=== PATIENT | female | born 1985 | race Hispanic/Latino ===

== ENCOUNTER → 2018-05-08 09:09 | Outpatient (CLI) | payer MEDICARE, MEDICAID, SELFPAY ==
[2018-05-08 10:39] LABS: Add Manual Diff / Slide Review NO; Basophils Percent Auto 0.3 % (0-2); Hematocrit 41.5 % (36-46); Hemoglobin 14.4 g/dL (12.0-16.0); Lymphocytes Percent Auto 37.9 % (25-40); Mean Corpuscular HGB Conc 34.7 % (30-36); Mean Corpuscular Hemoglobin 32.1 PG (26-34); Mean Corpuscular Volume 92.5 fL (80-100); Monocytes Percent Auto 5.2 % (3-14); Neutrophils Absolute Auto 2800 /uL (3000-5900); Neutrophils Percent Auto 54.6 % (50-75); Platelet Count 122 X10^3/uL (150-400); Red Blood Cell Count 4.49 X10^6/uL (4.0-5.2); Red Cell Distribution Width 12.6 % (11.6-14.8); White Blood Cell Count 5.1 X10^3/uL (4.5-11.0)
[2018-05-08 11:40] LABS: Alanine Aminotransferase 60 IU/L (9-52); Albumin 4.1 g/dL (3.5-5.0); Albumin Globulin Ratio 1.1 (1.0-2.8); Alkaline Phosphatase 149 U/L (38-126); Aspartate Aminotransferase 30 IU/L (14-36); BUN Creatinine Ratio 23.3 (6-22); Bilirubin Total 1.2 mg/dL (0.2-1.3); Blood Urea Nitrogen 7 mg/dL (7-17); Carbon Dioxide 25 mmol/L (22-32); Chloride 97 mmol/L (98-107); Estimated Glomerular Filt Rate > 60.0 mL/min (>60); Globulin 3.7 g/dL (1.7-4.1); Glucose 83 mg/dL (70-100); HEMOLYSIS < 15 (0-50); Potassium 3.8 mmol/L (3.4-5.1); Sodium 133 mmol/L (137-145); Total Protein 7.8 g/dL (6.3-8.2)
== END ==
PROVIDERS: PCP Family Medicine; Visit Provider Family Medicine
DX: D69.6 Thrombocytopenia, unspecified (principal); E23.2 Diabetes insipidus
CPT/HCPCS: 36415; 80053; 85025

== ENCOUNTER 2018-06-03 06:50 | Inpatient (IN) | payer MEDICARE, MEDICAID, SELFPAY ==
[2018-06-03] VITALS (7 sets, daily range): BP systolic 109–141; BP diastolic 59–97; PULSE 95–112; RESP 18–30; TEMP 36.2–37.1; O2SAT 98–100; BMI 22.6
[2018-06-03] MEDS: LACTATED RINGERS 1,000 ML 42 ML IV (07:10)
--- NOTE | 2018-06-03 08:08 | PM.PREOP ---
Pre-operative Note Interval Note Pre-op Check: Yes History & Physical Reviewed by Physician and Yes Exam Performed Changes: No H&P completed within 30 days and has changed as indicated here:: No significant changes. Did not take metoprolol this morning.
--- NOTE | 2018-06-03 08:26 | SUR.OPER ---
Supine on padded OR bed, head on pillow, arm padded and tucked at side, legs uncrossed, safety belt at thigh, tape over blanket over lower legs .
--- NOTE | 2018-06-03 08:46 | PM.PROC.1 ---
Procedures Date/Time Date of procedure: 06/03/18 Time of procedure: 08:46 General Procedure description: Tracheostomy revision. Complications: none
--- NOTE | 2018-06-03 08:48 | PM.OP.1 ---
Operative Date/Time/Diagnoses Date of procedure: 06/03/18 Time of procedure: 08:48 Pre-op diagnosis: Tracheostomy stenosis Post-op diagnosis: same Procedure & Clinicians Procedure: Tracheostomy revision Same procedure as scheduled: Yes Indications: Tracheostomy stenosis Surgeon: Ney Mccartney Optical Engineering Manager: Florencio Ellis Anesthesia Type: General Operative Notes Findings: The stenosis and granulation/scar tissue of the tracheostomy site. Small amount of granulation within the tracha itself. Closure Type: not applicable Specimen(s): none sent Estimated Blood Loss (mL): 2 Blood products transfused: none Complications: none Condition: stable Disposition: PACU Plan for aftercare: Discharge home
[2018-06-03] MEDS: LIDOCAINE 1% W/EPI INJ 4 ML INJ (09:05)
[2018-06-03] MEDS: TRIAMCINOLONE 50 MG/5 ML VIAL INJ (09:12)
== END 2018-06-03 10:16 | disposition home or self-care (01) | DRG 206 ==
PROVIDERS: Otolaryngology; Admitting Provider Otolaryngology; PCP Family Medicine; Visit Provider Otolaryngology
PROC: 0HB1XZZ Excision of Face Skin, External Approach (ICD-10-PCS; principal; 2018-06-03 07:45)
DX: J95.03 Malfunction of tracheostomy stoma (principal); E23.2 Diabetes insipidus; G80.9 Cerebral palsy, unspecified; R62.50 Unspecified lack of expected normal physiological development in childhood
CPT/HCPCS: J0330; J1100; J2704; J3301

== ENCOUNTER → 2018-11-20 09:28 | Outpatient (CLI) | payer MEDICARE, MEDICAID, SELFPAY ==
[2018-11-20 10:24] LABS: Hematocrit 43.7 % (36-46); Mean Corpuscular HGB Conc 34.4 % (30-36); Mean Corpuscular Hemoglobin 31.8 PG (26-34); Mean Corpuscular Volume 92.6 fL (80-100); Platelet Count 159 X10^3/uL (150-400); Red Blood Cell Count 4.72 X10^6/uL (4.0-5.2); Red Cell Distribution Width 12.5 % (11.6-14.8); White Blood Cell Count 6.3 X10^3/uL (4.5-11.0)
[2018-11-20 10:33] LABS: Neutrophils Absolute Manual 3717 /uL (3000-5900); Total Cells Counted 100
[2018-11-20 10:34] LABS: Morphology Comment Normal Morphology
[2018-11-20 10:48] LABS: Alanine Aminotransferase 66 IU/L (9-52); Albumin 4.2 g/dL (3.5-5.0); Albumin Globulin Ratio 1.1 (1.0-2.8); Alkaline Phosphatase 158 U/L (38-126); Aspartate Aminotransferase 36 IU/L (14-36); BUN Creatinine Ratio 33.3 (6-22); Bilirubin Total 1.5 mg/dL (0.2-1.3); Blood Urea Nitrogen 10 mg/dL (7-17); Calcium 9.4 mg/dL (8.4-10.2); Carbon Dioxide 27 mmol/L (22-32); Chloride 101 mmol/L (98-107); Estimated Glomerular Filt Rate > 60.0 mL/min (>60); Globulin 3.7 g/dL (1.7-4.1); Glucose 78 mg/dL (70-100); HEMOLYSIS 30 (0-50); Potassium 4.7 mmol/L (3.4-5.1); Sodium 137 mmol/L (137-145); Total Protein 7.9 g/dL (6.3-8.2)
== END ==
PROVIDERS: PCP Family Medicine; Visit Provider Family Medicine
DX: E23.2 Diabetes insipidus (principal); D69.6 Thrombocytopenia, unspecified
CPT/HCPCS: 36415; 80053; 85025

== ENCOUNTER 2019-02-01 10:57 | Emergency (ER) | payer MEDICARE, MEDICAID, SELFPAY ==
--- NOTE | 2019-02-01 11:12 | DI.RAD.S_ITS ---
PROCEDURE: XR ABDOMEN MIN 2V INDICATIONS: constipation: PT is NOT MOBILE TECHNIQUE: 2 views of the abdomen were acquired. COMPARISON: None. FINDINGS: Surgical changes and devices: None. Bowel: No pneumoperitoneum. There is diffuse gaseous prominence, although no definite transition point or pathologically dilated bowel. Soft tissues: No masses; visualized solid organ contours appear normal in size. No suspicious abdominal calcifications. Moderate to large amount of stool is seen within the colon Bones: Chronic skeletal deformity and extensive thoracic and lumbar spinal instrumentation. There is also surgical fixation of the proximal left femur. Severe bilateral hip joint degeneration and deformities IMPRESSION: Diffuse gaseous prominence of the visualized bowel loops. No definite transition point or pathologic dilatation identified. No specific evidence of bowel obstruction seen at this time although if the patient's symptoms do not improve, continued surveillance with abdominal series radiographs could be performed. Moderate to large amount of stool, suggesting constipation. Dictated by: Brant Retana M.D. on 02/01/2019 at 11:46 Approved by: Brant Retana M.D. on 02/01/2019 at 11:48
[2019-02-01 11:14] VITALS: BP 125/94; PULSE 95; RESP 19; TEMP 36.9; O2SAT 99
[2019-02-01] MEDS: MINERAL OIL 1 EACH ENEMA PR (12:10)
[2019-02-01 12:30] VITALS: BP 140/93; PULSE 89; RESP 20; O2SAT 96
[2019-02-01] MEDS: MAGNESIUM CITRATE 300 ML SOLUTION PO (13:15)
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
[2019-02-01 13:30] VITALS: BP 138/82; PULSE 81; O2SAT 96
[2019-02-01 13:49] VITALS: BP 138/74; PULSE 72; RESP 18; O2SAT 98
== END 2019-02-01 14:04 | disposition home or self-care (01) ==
PROVIDERS: Emergency Provider Nurse Practitioner Family; PCP Family Medicine
DX: K59.09 Other constipation (principal)
CPT/HCPCS: 74019; 99282; 99283

== ENCOUNTER 2019-03-20 17:04 | Emergency (ER) | payer MEDICARE, MEDICAID, SELFPAY ==
[2019-03-20 17:11] VITALS: BP 125/85; PULSE 92; RESP 25; TEMP 37.2; O2SAT 98
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
[2019-03-20 18:29] VITALS: BP 123/90; PULSE 98; RESP 21; O2SAT 93
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
== END 2019-03-20 20:01 | disposition short-term general hospital (02) ==
PROVIDERS: Emergency Provider Emergency Medicine; Family Provider Family Medicine; PCP Family Medicine
DX: Z03.89 Encounter for observation for other suspected diseases and conditions ruled out (principal); Z93.0 Tracheostomy status
CPT/HCPCS: 99282

== ENCOUNTER → 2019-06-26 10:49 | Outpatient (CLI) | payer MEDICARE, MEDICAID, SELFPAY | PROVIDERS: Family Provider Family Medicine; PCP Family Medicine; Visit Provider Family Medicine | DX: N89.8 Other specified noninflammatory disorders of vagina (principal) | CPT/HCPCS: 87210 ==

== ENCOUNTER 2019-07-27 18:21 | Emergency (ER) | payer MEDICARE, MEDICAID, SELFPAY ==
--- NOTE | 2019-07-27 18:26 | DI.RAD.S_ITS ---
PROCEDURE: XR CHEST 1V INDICATIONS: cough, decreased breath sounds TECHNIQUE: One view of the chest was acquired. COMPARISON: [facility], CHEST 1 VIEW, 02/20/2018, 22:17. [facility], , CHEST 1 VIEW, 11/03/2017, 16:29. FINDINGS: Surgical changes and devices: Spine stabilization rods are present , as before. Lungs and pleura: Lung volumes are low. Mild right perihilar atelectasis versus pneumonia. No pleural effusions or pneumothorax. Mediastinum: Mediastinal contours appear normal. Heart size is normal. Bones and chest wall: No suspicious bony lesions. Overlying soft tissues appear unremarkable. IMPRESSION: Low lung volumes with right perihilar atelectasis versus pneumonia. Dictated by: Rajat Schneider M.D. on 07/27/2019 at 19:51 Approved by: Rajat Schneider M.D. on 07/27/2019 at 19:51
--- NOTE | 2019-07-27 18:27 | ED.SOB ---
HPI - SOB/Dyspnea General Chief Complaint: Upper Respiratory Symptoms Stated Complaint: Bleeding stoma Time Seen by Provider: 07/27/19 18:22 Source: family and EMS Mode of arrival: EMS Limitations: no limitations History of Present Illness HPI Narrative: 34-year-old female nonsmoker with history of cerebral palsy with tracheostomy and G-tube was in her normal state of health until this afternoon when her father was bathing her. He was cleaning her stoma and noted a small amount of bleeding which was then cauterized with silver nitrate. During the process she coughed a fair amount and seemed to be at least briefly in some respiratory distress. EMS was activated and has given her bronchodilators. Patient is clearing up and seems to be doing much better. No reported fever, rash thought of abdominal pain chest pain or other. MD Complaint: cough Onset (ago): hour(s) Severity: moderate Consistency/Duration: improved Relieving factors: bronchodilators Exacerbating factors: nothing Associated symptoms: denies other symptoms Related Data Home Medications Medication Instructions Recorded Confirmed lactose-reduced food with fibr 1 dose FEEDING TUBE QID 05/29/18 10/01/18 [Jevity 1 Jovan] Nebulizer Mask: Adult 1 ea MISCELLANEOUS DIRECTED 06/03/18 10/01/18 [G-Tube ] 1 ea MISCELLANEOUS QMONTH 06/03/18 10/01/18 [INNER CANNULA] 1 ea MISCELLANEOUS DIRECTED 06/03/18 10/01/18 [L Adult Briefs] 1 pac MISCELLANEOUS SEE 06/03/18 10/01/18 INSTRUCTIONS [SHILEY TRACH TUBE ] 1 ea MISCELLANEOUS DIRECTED 06/03/18 10/01/18 [SUCTION CATHETER ] 1 ea MISCELLANEOUS DIRECTED 06/03/18 10/01/18 [SUCTION TUBING] 1 ea MISCELLANEOUS DIRECTED 06/03/18 10/01/18 [sterile water] 1 ea MISCELLANEOUS DIRECTED 06/03/18 10/01/18 [thermal vents] 1 u SEE INSTRUCTIONS 06/03/18 10/01/18 [trach ties] 1 ea MISCELLANEOUS DIRECTED 06/03/18 10/01/18 simethicone [Gas Relief] 20 mg PO QIDP PRN 06/03/18 10/01/18 Previous Rx's Medication Instructions Recorded [Jevity 1 jovan] 4 can QDAY #0 08/22/16 [Button Kit] 1 kit QMONTH #1 kit 11/16/16 simethicone [Gas-X Extra Strength] 125 mg PO QID #120 tab 05/07/17 guaifenesin [Mucinex] 600 mg PO Q12H PRN #1 ea 07/27/17 albuterol sulfate 3 ml INH Q4HP PRN #180 ea 11/03/17 baclofen 20 mg tablet 20 mg PO TID #90 tab 11/18/18 metoprolol tartrate 25 mg tablet 25 mg PO BID #60 tab 11/18/18 docusate sodium 50 mg/5 mL oral 50 mg PO DAILY #473 ml 11/20/18 liquid medroxyprogesterone 150 mg/mL 150 mg IM ONCE #1 12/19/18 intramuscular syringe ranitidine HCl 15 mg/mL oral syrup 150 mg PO QDAY #300 ml 04/21/19 desmopressin 0.1 mg tablet 0.1 mg PO BID #180 tab 05/07/19 Allergies Allergy/AdvReac Type Severity Reaction Status Date / Time No Known Drug Allergies Allergy Verified 07/27/19 18:36 Review of Systems Review of Systems ROS Unobtainable: All systems reviewed & are unremarkable except as noted in HPI and below Constitutional Constitutional: Denies chills, Denies fatigue, Denies fever(s), Denies frequent falls, Denies lethargy and Denies weakness Eyes Eyes: Denies change in vision, Denies eye discharge, Denies irritation and Denies loss of vision ENT Ears, Nose, Mouth, and Throat: Denies change in voice, Denies dizziness, Denies neck pain, Denies sore throat and Denies throat swelling Cardiovascular Cardiovascular: Denies chest pain, Denies irregular heart rhythm, Denies lightheadedness, Denies palpitations and Denies orthopnea Respiratory Respiratory: Reports cough and Denies wheezing Gastrointestinal Gastrointestinal: Denies abdominal pain, Denies change in bowel habits, Denies diarrhea, Denies nausea and Denies vomiting Genitourinary Genitourinary: Denies hematuria, Denies flank pain, Denies urinary incontinence and Denies urinary urgency Musculoskeletal Musculoskeletal: Denies back pain, Denies muscle weakness, Denies neck pain, Denies numbness and Denies tingling Integumentary/Breasts Skin/Breast: Denies pruritus, Denies erythema, Denies rash and Denies wounds Neurologic Neurologic: Denies behavioral changes, Denies confusion, Denies dizziness, Denies frequent falls, Denies loss of vision, Denies numbness, Denies tingling and Denies weakness Psychiatric Psychiatric: Denies anxiety, Denies behavioral changes, Denies confusion, Denies depression, Denies homicidal ideation and Denies suicidal ideation Endocrine Endocrine: Denies fatigue, Denies flushing and Denies palpitations Hematologic/Lymphatic Hematologic/Lymphatic: Denies easy bruising Allergic/Immunologic Allergic/Immunologic: Denies urticaria, Denies throat swelling and Denies wheezing [facility] Social History household members: family Smoking Status: Never smoker Exam Narrative Exam Narrative: GENERAL: [34] year old patient appears stated age. Clearly well cared for, Well-nourished, no respiratory distress noted, at her baseline HEAD: Atraumatic. Normocephalic. EYES: Pupils equal round and reactive. Extraocular motions intact. No scleral icterus. No injection or drainage. ENT: Nose without bleeding, purulent drainage. Throat without erythema, tonsillar hypertrophy or exudate. Airway patent. NECK: Trachea midline. Non tender CARDIOVASCULAR: Regular rate and rhythm without murmurs, gallops, or rubs. RESPIRATORY: Clear to auscultation. Breath sounds equal bilaterally. No wheezes, rales, or rhonchi. Small amount of dried blood at rigth edge of trach stoma. No active bleeding. GASTROINTESTINAL: Abdomen soft, non-tender, nondistended. EXTREMITIES: No edema or joint tenderness. BACK: Nontender without deformity or crepitance. No flank tenderness. SKIN: No rash or erythema of visible areas Initial Vital Signs Initial Vital Signs: Vital Signs Temperature 97.8 F 07/27/19 18:32 Pulse Rate 103 H 07/27/19 18:32 Blood Pressure 147/94 H 07/27/19 18:32 Pulse Oximetry 96 07/27/19 18:32 Course Course Course Narrative: suctioning by RT. All clear, no blood Orders Ordered: ED Orders 07/27/19 18:26 XR chest 1V Stat Vital Signs Vital signs: Vital Signs - 8 hr 07/27/19 18:32 07/27/19 19:45 07/27/19 19:47 Temperature 97.8 F Pulse Rate 103 H 113 H Respiratory Rate 22 Blood Pressure 147/94 H Blood Pressure [Right Arm] 113/91 H Pulse Oximetry 96 97 07/27/19 20:37 Temperature Pulse Rate 107 H Respiratory Rate 22 Blood Pressure 135/97 H Blood Pressure [Right Arm] Pulse Oximetry 97 MDM - SOB/Dyspnea MDM Narrative Medical decision making narrative: 34-year-old female well known to staff at her baseline and in no obvious distress. Suctioning notes a small amount of clear fluid with, this is done by respiratory therapy whom knows the patient well. Chest x-ray appears unchanged over multiple priors. It is interpreted as atelectasis versus pneumonia in the right lower lobe but given lack of infectious findings and the timing of the event. Patient was in her normal state of health until she had a brief choking episode and quickly returned to that state of health after suctioning. Return precautions given and questions answered to the apparent satisfaction of her father. Discharge Plan Departure Patient Disposition: Home Clinical Impression: Feared complaint without diagnosis Cerebral palsy Qualifiers: Cerebral palsy type: unspecified type Qualified Code(s): G80.9 - Cerebral palsy, unspecified Discharge Date/Time: 07/27/19 20:38 Instructions: DI on Tracheotomy-Adult Activity Restrictions/Additional Instructions: *You have been diagnosed with [very reassuring exam, no blood on suction and chest x-ray is at baseline.] *What to do: * continue to take medications as directed *Follow up with your primary care provider in 2-3 days, call for an appointment. Let them know you were seen in the Emergency Department and that we ask that you be seen in follow up *Return to ER if you should have any new, worsening or concerning symptoms Prescriptions: No Action [Jevity 1 jovan] 4 can QDAY Qty: 0 RF: 0 [Button Kit] 1 kit QMONTH Qty: 1 RF: 12 simethicone [Gas-X Extra Strength] 125 MG tablet,chewable 125 mg PO QID Qty: 120 RF: 2 guaifenesin [Mucinex] 600 MG tablet extended release 12hr 600 mg PO Q12H PRNQty: 1 RF: 0 albuterol sulfate 2.5 MG/3 ML solution for nebulization 3 ml INH Q4HP PRNQty: 180 RF: 0 baclofen 20 mg tablet 20 mg PO TID Qty: 90 RF: 11 metoprolol tartrate 25 mg tablet 25 mg PO BID Qty: 60 RF: 11 medroxyprogesterone 150 mg/mL syringe 150 mg IM ONCE Qty: 1 RF: 3 ranitidine HCl 15 mg/mL syrup 150 mg PO QDAY Qty: 300 RF: 3 desmopressin [DDAVP] 0.1 mg tablet 0.1 mg PO BID Qty: 180 RF: 3 docusate sodium 50 mg/5 mL liquid 50 mg PO DAILY Qty: 473 RF: 1 lactose-reduced food with fibr [Jevity 1 Jovan] 0.04 gram-1.06 kcal/mL Liquid 1 dose Feeding Tube QID RF: 0 simethicone [Gas Relief] 40 MG/0.6 ML drops,suspension 20 mg PO QIDP PRN (Reason: Acid Reflux) RF: 0 Nebulizer Mask: Adult 1 ea miscellaneous DIRECTED RF: 0 [G-Tube ] 1 ea miscellaneous QMONTH RF: 0 [INNER CANNULA] 1 ea miscellaneous DIRECTED RF: 0 [L Adult Briefs] 1 pac miscellaneous SEE INSTRUCTIONS RF: 0 [SHILEY TRACH TUBE ] 1 ea miscellaneous DIRECTED RF: 0 [SUCTION CATHETER ] 1 ea miscellaneous DIRECTED RF: 0 [SUCTION TUBING] 1 ea miscellaneous DIRECTED RF: 0 [sterile water] 1 ea miscellaneous DIRECTED RF: 0 [thermal vents] 1 u SEE INSTRUCTIONS RF: 0 [trach ties] 1 ea miscellaneous DIRECTED RF: 0 Referrals: Magi Brewer DO [Primary Care Provider] -
[2019-07-27 18:32] VITALS: BP 147/94; PULSE 103; TEMP 36.6; O2SAT 96; BMI 23.6
[2019-07-27 19:45] VITALS: BP 113/91; PULSE 113; O2SAT 97
[2019-07-27 19:47] VITALS: RESP 22
[2019-07-27 20:37] VITALS: BP 135/97; PULSE 107; RESP 22; O2SAT 97
== END 2019-07-27 20:38 | disposition home or self-care (01) ==
PROVIDERS: Emergency Provider Emergency Medicine; Family Provider Family Medicine; PCP Family Medicine
DX: K94.01 Colostomy hemorrhage (principal)
CPT/HCPCS: 71045; 99282; 99283

== ENCOUNTER 2019-10-17 13:58 | Emergency (ER) | payer MEDICARE, MEDICAID, SELFPAY ==
[2019-10-17 13:59] VITALS: BP 144/106; PULSE 131; RESP 26; TEMP 36.7; O2SAT 98
--- NOTE | 2019-10-17 14:29 | ED.RECABL ---
HPI - Recheck/Abnormal Lab/Rx General Chief Complaint: Recheck/Abnormal Lab/Rx Stated Complaint: G tube fell out Time Seen by Provider: 10/17/19 14:28 Source: family (father) and EMS Mode of arrival: EMS Limitations: altered mental status History of Present Illness HPI narrative: This is a 34-year-old female who comes to the emergency department and her PEG tube has fallen out. Father states he noticed last night that it wasn't working well he removed it, tried soaking in warm water which was not helpful. He noted it was blocked. He then tried cleaning it with syringe and flushing it placed it but then it fell back out and he realized that the balloon had either popped or broken. He states that he did attempt to secure it he did put a Quintana catheter in last night and had stomach contacts out almost immediately but did not know if this was appropriate. Patient's father states she hasn't had fevers. She hasn't had vomiting. She has a normal bowel movement every 2-3 days. He does not feel that her abdomen is distended or changed. He states that otherwise she has been acting normally. She states she has not had her tube feeds since yesterday evening at 7:00 p.m. he states that she has had good urine output 9-11 times daily he is changing her diaper. Related Data Home Medications Medication Instructions Recorded Confirmed lactose-reduced food with fibr 1 dose FEEDING TUBE QID 05/29/18 10/01/18 [Jevity 1 Violeta] Nebulizer Mask: Adult 1 ea MISCELLANEOUS DIRECTED 06/03/18 10/01/18 [G-Tube ] 1 ea MISCELLANEOUS QMONTH 06/03/18 10/01/18 [INNER CANNULA] 1 ea MISCELLANEOUS DIRECTED 06/03/18 10/01/18 [L Adult Briefs] 1 pac MISCELLANEOUS SEE 06/03/18 10/01/18 INSTRUCTIONS [SHILEY TRACH TUBE ] 1 ea MISCELLANEOUS DIRECTED 06/03/18 10/01/18 [SUCTION CATHETER ] 1 ea MISCELLANEOUS DIRECTED 06/03/18 10/01/18 [SUCTION TUBING] 1 ea MISCELLANEOUS DIRECTED 06/03/18 10/01/18 [sterile water] 1 ea MISCELLANEOUS DIRECTED 06/03/18 10/01/18 [thermal vents] 1 u SEE INSTRUCTIONS 06/03/18 10/01/18 [trach ties] 1 ea MISCELLANEOUS DIRECTED 06/03/18 10/01/18 simethicone [Gas Relief] 20 mg PO QIDP PRN 06/03/18 10/01/18 ranitidine HCl 150 mg PO DAILY 10/17/19 10/17/19 Previous Rx's Medication Instructions Recorded [Jevity 1 violeta] 4 can QDAY #0 08/22/16 [Button Kit] 1 kit QMONTH #1 kit 11/16/16 simethicone [Gas-X Extra Strength] 125 mg PO QID #120 tab 05/07/17 guaifenesin [Mucinex] 600 mg PO Q12H PRN #1 ea 07/27/17 albuterol sulfate 3 ml INH Q4HP PRN #180 ea 11/03/17 baclofen 20 mg tablet 20 mg PO TID #90 tab 11/18/18 metoprolol tartrate 25 mg tablet 25 mg PO BID #60 tab 11/18/18 docusate sodium 50 mg/5 mL oral 50 mg PO DAILY #473 ml 11/20/18 liquid desmopressin 0.1 mg tablet 0.1 mg PO BID #180 tab 05/07/19 medroxyprogesterone 150 mg/mL 150 mg IM ONCE #1 ml 08/25/19 intramuscular syringe famotidine 40 mg/5 mL (8 mg/mL) 40 mg PO DAILY #150 ml 09/09/19 oral suspension carbamide peroxide 6.5 % ear drops 4 drop OTIC (EAR) BID #15 ml 09/24/19 G-tube kit 16F 3.0cm Marquez button #1 ea 10/02/19 Allergies Allergy/AdvReac Type Severity Reaction Status Date / Time No Known Drug Allergies Allergy Verified 07/27/19 18:36 Review of Systems Review of Systems ROS Unobtainable: Unobtainable due to mental status/LOC Patient History Medical History Cerebral palsy (Chronic) Developmental delay, mild (Chronic) Diabetes insipidus (Chronic ~1982) Granulation tissue of site of tracheostomy (Acute) Pneumonia (Chronic) Scoliosis (Chronic ~1995) Surgical History Anesthesia (Resolved) Arthritis of right hip (Resolved ~1992) G tube feedings (Resolved ~1996) History of release of tendon (Resolved) History of tracheostomy (Resolved ~1996) Surgical procedure planned (Resolved ~1992) Social History household members: family Smoking Status: Never smoker Smoking Status: Never smoker alcohol intake frequency: holidays/special occasions only Substance Use Type: does not use Exam Narrative Exam Narrative: GENERAL: Alert female, patient looks around the room but is nonverbal. HEENT: Head normocephalic, atraumatic, EOMI, pupils reactive, face symmetric, moist mucous membranes NECK: Supple, full range of motion CARDIOVASCULAR: Regular rate and rhythm without murmurs, rubs or gallops. RESPIRATORY: Breath sounds equal bilaterally, no wheezes rales or rhonchi. ABDOMEN: Soft, nontender. Moderately distended. PEG tube opening appears clean dry and intact without any erythema, no drainage. Normoactive bowel sounds all 4 quadrants. No guarding or rebound, rigidity, no mass : No CVA tenderness EXTREMITIES: Normal range of motion, no clubbing or edema. Neurovascularly intact NEUROLOGICAL: Cranial nerves II through XII grossly intact. Moving all extremities SKIN: Warm, dry, no petechiae, no rashes or lesions. Initial Vital Signs Initial Vital Signs: Vital Signs Temperature 98.0 F 10/17/19 13:59 Pulse Rate 131 H 10/17/19 13:59 Respiratory Rate 26 H 10/17/19 13:59 Blood Pressure 144/106 H 10/17/19 13:59 Pulse Oximetry 98 10/17/19 13:59 Course Orders Ordered: ED Orders 10/17/19 14:55 XR abdomen 1V Stat Vital Signs Vital signs: Vital Signs - 8 hr 10/17/19 13:59 10/17/19 14:30 10/17/19 15:00 Temperature 98.0 F Pulse Rate 131 H 130 H 133 H Respiratory Rate 26 H 20 20 Blood Pressure 144/106 H Blood Pressure [Right Arm] 123/83 132/90 Pulse Oximetry 98 94 92 10/17/19 15:41 10/17/19 16:36 Temperature Pulse Rate 129 H 128 H Respiratory Rate 24 24 Blood Pressure Blood Pressure [Right Arm] 111/88 142/100 H Pulse Oximetry 94 95 [facility] - Recheck/Abnormal Lab/Rx Imaging Data Abdominal x-ray: Radiologist's impression: [facility] [address] [place] [id number] XRay Report Signed Patient: Ana Ray [facility]#: [id number] : 1985Acct:[id number] Age/Sex: 34 / FDate of Service: 10/17/19 Loc: ED Accession Number: [id number] Procedure: XR abdomen 1V Ordering Provider: Bailey Gray D.O. PROCEDURE: XR ABDOMEN 1V INDICATIONS: gastrografin via tube TECHNIQUE: One view of the abdomen acquired. COMPARISON: [facility], CR, XR ABDOMEN MIN 2V, 02/01/2019, 11:19. FINDINGS: Surgical changes and devices: PEG tube is noted. After instillation of Gastrografin contrast there is intraluminal opacification. No definite extraluminal opacification to suggest leak. Bowel: Prominent gaseous dilatation of multiple bowel loops. No specific transition point in the appearances relatively similar to 02/01/19 Soft tissues: No suspicious abdominal calcifications. Visualized solid organ contours appear normal in size. Bones: No suspicious bony lesions. Numerous spinal fixation hardware. Chronic skeletal deformity IMPRESSION: No definite extraluminal contrast opacification to suggest leak. Grossly unremarkable appearance of the stomach and normal PEG tube position Dictated by: Brant Retana M.D. on 10/17/2019 at 15:19 Approved by: Brant Retana M.D. on 10/17/2019 at 15:22 [facility] Narrative Medical decision making narrative: 16Fr Quintana catheter was placed without issue. Catheter was checked, balloon was inflated, move was used and the catheter easily slid into the hole. Balloon was inflated pulled back and appears to be in place with some gastric type contents immediately out of the tube. Patient's father did bring in the original PEG tube which does appear to be a 16 Faroese. He has another 1 coming in the mail but will arrive until tomorrow. He states he is typically the 1 that changes them out. Discussed with radiology, fluoroscopy is down currently but they can a quick injection of dye with x-ray to evaluate for patency. Xray shows no suggestion of leak and unremarkable appearance of stomach and normal PEG tube placement. Nursing is attempting to find adaptor for patient so she can continue PEG tube feeds at home until her home PEG tube arrives. Unable to find adaptor but discussed can bolus feeds at home until new PEG tube arrives in the am. Discharge Plan Departure Patient Disposition: Home Clinical Impression: PEG tube malfunction Discharge Date/Time: 10/17/19 17:24 Activity Restrictions/Additional Instructions: You may return to ER tomorrow for replacement of the PEG tube unless you feel comfortable replacing it yourself. Continue current feeds and medications as prescribed. Imaging today after catheter placement shows no signs of leak at this time and good placement. Return to the emergency department for fevers greater 100.4 F, if the catheter appears to be male functioning, if you are unable to get medications or feeds or fluids through it, new abdominal pain, increasing distension, vomiting, if patient is not having any stool output or any other new or concerning signs. Prescriptions: No Action [Jevity 1 violeta] 4 can QDAY Qty: 0 RF: 0 [Button Kit] 1 kit QMONTH Qty: 1 RF: 12 simethicone [Gas-X Extra Strength] 125 MG tablet,chewable 125 mg PO QID Qty: 120 RF: 2 guaifenesin [Mucinex] 600 MG tablet extended release 12hr 600 mg PO Q12H PRNQty: 1 RF: 0 albuterol sulfate 2.5 MG/3 ML solution for nebulization 3 ml INH Q4HP PRNQty: 180 RF: 0 baclofen 20 mg tablet 20 mg PO TID Qty: 90 RF: 11 metoprolol tartrate 25 mg tablet 25 mg PO BID Qty: 60 RF: 11 desmopressin [DDAVP] 0.1 mg tablet 0.1 mg PO BID Qty: 180 RF: 3 famotidine 40 mg/5 mL (8 mg/mL) suspension 40 mg PO DAILY Qty: 150 RF: 11 docusate sodium 50 mg/5 mL liquid 50 mg PO DAILY Qty: 473 RF: 1 medroxyprogesterone 150 mg/mL syringe 150 mg IM ONCE Qty: 1 RF: 3 carbamide peroxide [Debrox] 6.5 % drops 4 drop otic (ear) BID Qty: 15 RF: 0 (DME) G-tube kit 16F 3.0cm Marquez button Qty: 1 RF: 11 lactose-reduced food with fibr [Jevity 1 Violeta] 0.04 gram-1.06 kcal/mL Liquid 1 dose Feeding Tube QID RF: 0 simethicone [Gas Relief] 40 MG/0.6 ML drops,suspension 20 mg PO QIDP PRN (Reason: Acid Reflux) RF: 0 Nebulizer Mask: Adult 1 ea miscellaneous DIRECTED RF: 0 [G-Tube ] 1 ea miscellaneous QMONTH RF: 0 [INNER CANNULA] 1 ea miscellaneous DIRECTED RF: 0 [L Adult Briefs] 1 pac miscellaneous SEE INSTRUCTIONS RF: 0 [SHILEY TRACH TUBE ] 1 ea miscellaneous DIRECTED RF: 0 [SUCTION CATHETER ] 1 ea miscellaneous DIRECTED RF: 0 [SUCTION TUBING] 1 ea miscellaneous DIRECTED RF: 0 [sterile water] 1 ea miscellaneous DIRECTED RF: 0 [thermal vents] 1 u SEE INSTRUCTIONS RF: 0 [trach ties] 1 ea miscellaneous DIRECTED RF: 0 ranitidine HCl 15 mg/mL syrup 150 mg PO DAILY RF: 0 Referrals: Magi Brewer DO [Primary Care Provider] -
[2019-10-17 14:30] VITALS: BP 123/83; PULSE 130; RESP 20; O2SAT 94
--- NOTE | 2019-10-17 14:55 | DI.RAD.S_ITS ---
PROCEDURE: XR ABDOMEN 1V INDICATIONS: gastrografin via tube TECHNIQUE: One view of the abdomen acquired. COMPARISON: [facility], CR, XR ABDOMEN MIN 2V, 02/01/2019, 11:19. FINDINGS: Surgical changes and devices: PEG tube is noted. After instillation of Gastrografin contrast there is intraluminal opacification. No definite extraluminal opacification to suggest leak. Bowel: Prominent gaseous dilatation of multiple bowel loops. No specific transition point in the appearances relatively similar to 02/01/19 Soft tissues: No suspicious abdominal calcifications. Visualized solid organ contours appear normal in size. Bones: No suspicious bony lesions. Numerous spinal fixation hardware. Chronic skeletal deformity IMPRESSION: No definite extraluminal contrast opacification to suggest leak. Grossly unremarkable appearance of the stomach and normal PEG tube position Dictated by: Brant Retana M.D. on 10/17/2019 at 15:19 Approved by: Brant Retana M.D. on 10/17/2019 at 15:22
[2019-10-17 15:00] VITALS: BP 132/90; PULSE 133; RESP 20; O2SAT 92
--- NOTE | 2019-10-17 15:08 | PC.NURSE ---
#16 gilliam secured w/ device. Flushes well. Father voices concern re: taking child home w/ this in place rather than his normal g tube. Respiratory in to suction pt. Father asked that he do it as he does it at home.
--- NOTE | 2019-10-17 15:17 | PC.NURSE ---
Flushed contrast, tube patent. Pt in no apparent discomfort.
[2019-10-17 15:41] VITALS: BP 111/88; PULSE 129; RESP 24; O2SAT 94
[2019-10-17 16:36] VITALS: BP 142/100; PULSE 128; RESP 24; O2SAT 95
--- NOTE | 2019-10-17 16:37 | PC.NURSE ---
tolerated bolus feeds as per normal. Father states he feels comfortable w/ doing feeds at home. Has appropriate supplies. Refused offer to attempt admission if he was not comfortable. States he would feel better at home. Tolerated 140 cc regular formula bolus feed.
== END 2019-10-17 17:24 | disposition home or self-care (01) ==
PROVIDERS: Emergency Provider Emergency Medicine; Family Provider Family Medicine; PCP Family Medicine
DX: K94.23 Gastrostomy malfunction (principal)
CPT/HCPCS: 74018; 99282; 99283

== ENCOUNTER → 2020-02-19 17:00 | Outpatient (ROUT) | payer MEDICARE, MEDICAID, SELFPAY ==
[2020-02-19 17:22] LABS: Add Manual Diff / Slide Review NO; Basophils Absolute Auto 0 /uL (0-100); Basophils Percent Auto 0.5 % (0-2); Eosinophils Absolute Auto 100 /uL (0-450); Hematocrit 42.2 % (36-46); Hemoglobin 14.6 g/dL (12.0-16.0); Lymphocytes Absolute Auto 2300 /uL (1100-4500); Lymphocytes Percent Auto 32.3 % (25-40); Mean Corpuscular HGB Conc 34.6 % (30-36); Mean Corpuscular Hemoglobin 32.3 PG (26-34); Mean Corpuscular Volume 93.3 fL (80-100); Monocytes Absolute Auto 500 /uL (0-900); Neutrophils Absolute Auto 4200 /uL (1500-7000); Neutrophils Percent Auto 58.2 % (50-75); Platelet Count 162 X10^3/uL (150-400); Red Blood Cell Count 4.52 X10^6/uL (4.0-5.2); Red Cell Distribution Width 12.3 % (11.6-14.8); White Blood Cell Count 7.2 X10^3/uL (4.5-11.0)
[2020-02-19 17:28] LABS: Alanine Aminotransferase 41 IU/L (<35); Albumin 4.2 g/dL (3.5-5.0); Albumin Globulin Ratio 1.1 (1.0-2.8); Alkaline Phosphatase 187 U/L (38-126); Aspartate Aminotransferase 31 IU/L (14-36); BUN Creatinine Ratio 34.4 (6-22); Bilirubin Total 1.3 mg/dL (0.2-1.3); Blood Urea Nitrogen 11 mg/dL (7-17); Calcium 9.5 mg/dL (8.4-10.2); Carbon Dioxide 26 mmol/L (22-32); Chloride 102 mmol/L (98-107); Cholesterol 74 mg/dL (140-199); Estimated Glomerular Filt Rate > 60.0 mL/min (>60); Glucose 75 mg/dL (70-100); HDL Cholesterol 20 mg/dL (40-60); HEMOLYSIS < 15 (0-50); LDL Cholesterol Calculated 44 mg/dL (<100); Potassium 4.2 mmol/L (3.4-5.1); Sodium 139 mmol/L (137-145); Total Protein 8.2 g/dL (6.3-8.2); Triglycerides 52 mg/dL (35-150)
[2020-02-19 18:00] LABS: Free T3, Triiodothyronine Free 3.44 pg/mL (2.77-5.27); Free T4, Direct Thyroxine 1.22 ng/dL (0.78-2.19)
[2020-02-19 18:14] LABS: Thyroid Stimulating Hormone 3.14 uIU/mL (0.47-4.68)
== END ==
PROVIDERS: Family Provider Family Medicine; PCP Family Medicine; Visit Provider Nurse Practitioner
DX: Z00.00 Encounter for general adult medical examination without abnormal findings (principal); E23.2 Diabetes insipidus; R03.0 Elevated blood-pressure reading, without diagnosis of hypertension; R79.89 Other specified abnormal findings of blood chemistry; Z93.1 Gastrostomy status
CPT/HCPCS: 80053; 80061; 84439; 84443; 84481; 85025

== ENCOUNTER → 2020-09-29 12:45 | Outpatient (CLI) | payer MEDICARE, MEDICAID, SELFPAY ==
[2020-09-29 13:37] LABS: COVID19 -Nasal RAPID Negative (Negative)
== END ==
PROVIDERS: Family Provider Family Medicine; PCP Nurse Practitioner; Visit Provider Nurse Practitioner
DX: R05 Cough (principal); R50.9 Fever, unspecified
CPT/HCPCS: 87635

== ENCOUNTER → 2020-09-29 13:14 | Outpatient (CLI) | payer MEDICARE, MEDICAID, SELFPAY ==
--- NOTE | 2020-09-29 13:17 | DI.RAD.S_ITS ---
PROCEDURE: XR CHEST 2V INDICATIONS: Cough, increased secretions TECHNIQUE: 2 views of the chest were acquired. COMPARISON: [facility], CR, XR ABDOMEN 1V, 10/17/2019, 15:03. [facility], CR, XR ABDOMEN MIN 2V, 02/01/2019, 11:19. [facility], CR, CHEST 1 VIEW, 11/03/2017, 16:29. [facility], CR, CHEST 1 VIEW, 09/27/2016, 23:29. [facility], CR, XR CHEST 1V, 07/27/2019, 19:31. [facility], CR, CHEST 1 VIEW, 02/20/2018, 22:17. FINDINGS: Surgical changes and devices: Extensive prior spine fusion devices crossing from the thoracic into the lumbosacral region of the spine are again noted. Gas within bowel loops is present, the inspiratory volume is prominently reduced. There is a region of dense opacifications at the medial right upper lobe, possibly pneumonia or a mass. The area involved measures an estimated 8 cm transverse and 7.6 cm craniocaudad.. Lungs and pleura: Lungs are clear. No pleural effusions or pneumothorax. Mediastinum: Mediastinal contours are normal. Heart size is normal. Tracheostomy tube positioning is difficult to accurately assess due to overlap of spine fixation devices and patient rotation. Bones and chest wall: No suspicious bony abnormalities. Soft tissues appear unremarkable. IMPRESSION: Possible mass or dense pneumonia right upper lobe. Extensive prior spine fusion surgery. Elevation of the diaphragms, bilaterally, but greater on the right than the left. Contrast-enhanced CT scanning may be warranted. Dictated by: Malik Hedrick M.D. on 09/29/2020 at 14:18 Approved by: Malik Hedrick M.D. on 09/29/2020 at 14:21
== END ==
PROVIDERS: Family Provider Family Medicine; PCP Nurse Practitioner; Referring Provider Nurse Practitioner; Visit Provider Nurse Practitioner
DX: R05 Cough (principal); R50.9 Fever, unspecified; Z98.1 Arthrodesis status
CPT/HCPCS: 71046; 87635

== ENCOUNTER → 2020-11-15 09:12 | Outpatient (CLI) | payer MEDICARE, MEDICAID, SELFPAY ==
--- NOTE | 2020-11-15 09:13 | DI.RAD.S_ITS ---
PROCEDURE: XR CHEST 2V INDICATIONS: f/u pneumonia TECHNIQUE: 2 views of the chest were acquired. COMPARISON: [facility], , CHEST 1 VIEW, 11/03/2017, 16:29. [facility], CR, CHEST 1 VIEW, 02/20/2018, 22:17. [facility], CR, XR CHEST 2V, 09/29/2020, 13:28. [facility], , XR CHEST 1V, 07/27/2019, 19:31. FINDINGS: Surgical changes and devices: Thoracolumbar Chau rods are noted, unchanged compared to prior x-ray. Lungs and pleura: There is severe right hemidiaphragm elevation with adjacent atelectasis. Interposed colon between the liver and the right hemidiaphragm is unchanged. No focal consolidation, mass, pneumothorax, or pleural effusion. Density in the right upper lobe consistent with mass or pneumonia is decreased in conspicuity compared to the prior study on September 29, 2018. Similar findings were seen on more remote x-rays in this could represent compressed mediastinal structures. Given the persistence of this finding, recommend CT of the chest for further evaluation. Mediastinum: Mediastinal contours are normal. Heart size is normal. Bones and chest wall: No suspicious bony abnormalities. Soft tissues appear unremarkable. IMPRESSION: 1. Persistent density in the right medial apex. Recommend CT of the chest for further evaluation. 2. Stable elevation of the right hemidiaphragm. Dictated by: Alexis Jordan M.D. on 11/15/2020 at 9:49 Approved by: Alexis Jordan M.D. on 11/15/2020 at 9:57
== END ==
PROVIDERS: Family Provider Family Medicine; PCP Nurse Practitioner; Referring Provider Nurse Practitioner; Visit Provider Nurse Practitioner
DX: J69.0 Pneumonitis due to inhalation of food and vomit (principal)
CPT/HCPCS: 71046

== ENCOUNTER → 2020-11-22 11:49 | Outpatient (CLI) | payer MEDICARE, MEDICAID, SELFPAY ==
--- NOTE | 2020-11-22 11:52 | DI.CT.S_ITS ---
PROCEDURE: CT CHEST W CON INDICATIONS: density right medial apex TECHNIQUE: After the administration of intravenous contrast, 5 mm thick sections acquired from the pulmonary apices to the posterior costophrenic angles. 1 mm axial lung, 5 mm thick coronal and sagittal reformats and 7 mm axial MIP were acquired. For radiation dose reduction, the following was used: automated exposure control, adjustment of mA and/or kV according to patient size. COMPARISON: [facility], CR, XR CHEST 2V, 11/15/2020, 9:15. FINDINGS: Image quality: Excellent. Lungs and pleura: There is near complete collapse involving medial aspect of right upper lobe which accounts for radiograph finding. Decreased right lung volume and mediastinal shift to the right is seen. Linear scarring/atelectasis in anterior medial aspect of right middle lobe . Hazy ground-glass opacities are seen scattered in bilateral aerated lung coombs. No pleural effusions or pneumothorax. Central and left peripheral airways are patent. There is significant narrowing of right upper lobe bronchus at its origin. No definite endotracheal or endobronchial lesion is noted. Right middle and lower lobe airway is patent. Mediastinum: Heart size is normal. No pericardial effusion. Prominent soft tissue density in right upper mediastinum and right hilar region are seen concerning for lymphadenopathy. Thoracic aorta and central pulmonary arteries are normal in size. Esophagus is normal in caliber. No hiatal hernia. Bones and chest wall: No suspicious bony lesions. No vertebral body compression fractures. Fixation hardware in thoracic spine is seen. Marked dextroscoliosis of thoracic spine is noted. No axillary or supraclavicular adenopathy by size criteria. Thyroid gland is within normal limits. Abdomen: Visualized upper abdominal solid organs appear normal. Upper abdominal bowel loops are normal in caliber. IMPRESSION: 1. Near complete collapse of right upper lobe with decreased right lung volume and elevation of right hemidiaphragm. There is suggestion of stenosis involving right upper lobe bronchus proximally suggestive of postobstructive atelectasis of right upper lobe. No definite endobronchial mass is seen. Clinical and possible endoscopic evaluation is recommended. 2. Suggestion of mild pulmonary edema with ground-glass opacities scattered in bilateral aerated lung coombs. No pleural effusion or pneumothorax. 3. Mild soft tissue prominence in right upper mediastinum and right hilar region which may represent mediastinal and right hilar lymphadenopathy. Dictated by: Jermain Hudson M.D. on 11/22/2020 at 14:04 Approved by: Jermain Hudson M.D. on 11/22/2020 at 14:31
== END ==
PROVIDERS: Family Provider Family Medicine; PCP Nurse Practitioner; Referring Provider Nurse Practitioner; Visit Provider Nurse Practitioner
DX: J98.4 Other disorders of lung (principal)
CPT/HCPCS: 71260

== ENCOUNTER 2021-02-10 15:43 | Observation (INO) | payer MEDICARE, MEDICAID, SELFPAY ==
[2021-02-10] VITALS (7 sets, daily range): BP systolic 128–144; BP diastolic 74–89; PULSE 100–112; RESP 14–24; TEMP 37.3; O2SAT 96–100; BMI 23.5
--- NOTE | 2021-02-10 15:47 | DI.RAD.S_ITS ---
PROCEDURE: XR ACUTE ABDOMEN SERIES INDICATIONS: abdomen distention TECHNIQUE: One view chest and two views of the abdomen were acquired. COMPARISON: None. FINDINGS: Surgical changes and devices: Extensive spine fusion procedure, crossing from the low cervical through the thoracic through the lumbosacral spine and into the pelvis bilaterally.. Chest: Lungs are clear. Heart size is normal. No pleural effusions. No pneumoperitoneum. Abdomen: Bowel gas pattern is nonspecific and no free air is seen. There is greater bowel gas on the right than the left within the colon.. No suspicious calcifications. Visualized solid organ contours appear normal. Bones: No suspicious bony lesions. IMPRESSION: Bowel gas pattern is nonspecific, and no definite free air is seen on this semi upright view. Extensive spine surgery in the past, reduced inspiratory volume at the lungs bilaterally. Tracheostomy in place partially visualized. Dictated by: Malik Hedrick M.D. on 02/10/2021 at 16:40 Approved by: Malik Hedrick M.D. on 02/10/2021 at 16:41
--- NOTE | 2021-02-10 16:14 | ED.ABDPAIN ---
HPI - Abdominal Pain <Tana Erwin, DO - Last Filed: 02/11/21 07:13> General Chief Complaint: Abdominal Pain Stated Complaint: Abdominal pain Time Seen by Provider: 02/10/21 15:47 Source: family and EMS Mode of arrival: EMS Limitations: physical limitation History of Present Illness HPI narrative: Patient is a 35-year-old female with cerebral palsy and trach presenting with her father who is her primary care provider with constipation. He states that she has not had a bowel movement in 3 days and her abdomen has gotten very large. She also was diagnosed with pneumonia but not been on any antibiotics. He states that he had a scan here which appears that she had a chest CT on November 22. She was given a scopolamine patch to have the secretions but he thought it was making things worse and removed it. He now sections her frequently. He denies any fever as he takes her vitals daily. He can tell that she is uncomfortable. MD complaint: abdominal pain Onset (ago): day(s) (3) Related Data Home Medications Medication Instructions Recorded Confirmed lactose-reduced food with fibr 1 dose FEEDING TUBE QID 05/29/18 10/08/20 [Jevity 1 Violeta] Nebulizer Mask: Adult 1 ea MISCELLANEOUS DIRECTED 06/03/18 10/08/20 [INNER CANNULA] 1 ea MISCELLANEOUS DIRECTED 06/03/18 10/08/20 [L Adult Briefs] 1 pac MISCELLANEOUS SEE 06/03/18 10/08/20 INSTRUCTIONS [SUCTION CATHETER ] 1 ea MISCELLANEOUS DIRECTED 06/03/18 10/08/20 [SUCTION TUBING] 1 ea MISCELLANEOUS DIRECTED 06/03/18 10/08/20 [sterile water] 1 ea MISCELLANEOUS DIRECTED 06/03/18 10/08/20 [thermal vents] 1 u SEE INSTRUCTIONS 06/03/18 10/08/20 [trach ties] 1 ea MISCELLANEOUS DIRECTED 06/03/18 10/08/20 simethicone [Gas Relief 20 mg PO QIDP PRN 06/03/18 10/08/20 (simethicone)] Previous Rx's Medication Instructions Recorded [Jevity 1 violeta] 4 can QDAY #0 08/22/16 [Button Kit] 1 kit QMONTH #1 kit 11/16/16 simethicone [Gas-X Extra Strength] 125 mg PO QID #120 tab 05/07/17 guaifenesin [Mucinex] 600 mg PO Q12H PRN #1 ea 07/27/17 docusate sodium 50 mg/5 mL oral 50 mg PO DAILY #473 ml 11/20/18 liquid famotidine 40 mg/5 mL (8 mg/mL) 40 mg PO DAILY #150 ml 09/09/19 oral suspension carbamide peroxide 6.5 % ear drops 4 drop OTIC (EAR) BID #15 ml 09/24/19 ranitidine HCl 15 mg/mL oral syrup 150 mg PO DAILY #473 ml 12/22/19 [G-Tube ] #1 ea 04/05/20 G-tube kit 16F 3.0cm Marquez button #1 ea 04/13/20 desmopressin 0.1 mg tablet 0.1 mg PO BID #180 tab 05/12/20 augmentin 600 mg FEEDING TUBE BID #100 ml 07/16/20 fluconazole 150 mg tablet 150 mg PO DAILY #2 tab 07/16/20 baclofen 20 mg tablet 20 mg PO TID #270 tab 11/08/20 metoprolol tartrate 25 mg tablet 25 mg FEEDING TUBE BID #180 tab 11/08/20 scopolamine base 1 mg over 3 days 1 patch TRANSDERMAL Q72H #24 ea 12/06/20 transdermal patch medroxyprogesterone 150 mg/mL 150 mg IM ONCE #1 ml 12/20/20 intramuscular syringe Shiley Flex Cuffless Reuseable #1 ea 12/24/20 Trach Tube 6.5mm albuterol sulfate 2.5 mg CONTINUOUS NEBULIZATION 01/20/21 Q4HP PRN #25 each Allergies Allergy/AdvReac Type Severity Reaction Status Date / Time No Known Drug Allergies Allergy Verified 07/27/19 18:36 Review of Systems <DO Anne Pappas Last Filed: 02/11/21 07:13> Review of Systems Narrative: Obtained from caregiver ROS Unobtainable: Unobtainable due to medical condition Constitutional Constitutional: Denies fever(s) Respiratory Respiratory: Reports excessive phlegm production Gastrointestinal Gastrointestinal: Reports abdominal pain, Denies nausea and Denies vomiting Integumentary/Breasts Skin/Breast: Denies new lesions and Denies rash Patient History <DO Anne Pappas Last Filed: 02/11/21 07:13> Medical History Aspiration pneumonia Cerebral palsy Developmental delay, mild Diabetes insipidus (~1982) Granulation tissue of site of tracheostomy History of anoxic brain injury Pneumonia Scoliosis (~1995) Tracheostomy granuloma Surgical History Anesthesia Arthritis of right hip (~1992) G tube feedings (~1996) History of release of tendon History of tracheostomy (~1996) Surgical procedure planned (~1992) Family History Father Age: 79 Non-Hodgkin lymphoma Diabetes mellitus Heart disease Hypertension High cholesterol Pacemaker Grandmother Heart disease Hypertension High cholesterol Stroke Cancer Mother Diabetes mellitus Ovarian cancer Grandfather Cancer Grandmother Diabetes mellitus Heart disease Hypertension High cholesterol Stroke Social History household members: family Smoking Status: Never smoker Smoking Status: Never smoker alcohol intake frequency: holidays/special occasions only Substance Use Type: does not use Exam <Tana Hood DO - Last Filed: 02/11/21 07:13> Initial Vital Signs Initial Vital Signs: Vital Signs Respiratory Rate 20 02/10/21 16:01 Pulse Oximetry 96 02/10/21 16:01 GENERAL: Alert CP 35-year-old female appears mildly uncomfortable HEENT: Head atraumatic,EOMI, pupils reactive, face symmetric, [moist] mucous membranes, trach in place, multiple secretions CARDIOVASCULAR: Regular rate and rhythm without murmurs, rubs or gallops. RESPIRATORY: Breath sounds equal bilaterally, no wheezes rales or rhonchi. ABDOMEN: Distended increased bowel sounds 1 is tender EXTREMITIES: Normal range of motion, no clubbing or edema. Neurovascularly intact NEUROLOGICAL: Moving all extremities at baseline per dad SKIN: Warm, dry, no laceration, no petechiae, no rashes or lesions. <Kimberley Juarez MD - Last Filed: 02/11/21 02:28> Initial Vital Signs Initial Vital Signs: Vital Signs Respiratory Rate 20 02/10/21 16:01 Pulse Oximetry 96 02/10/21 16:01 Course <Tana Hood DO - Last Filed: 02/11/21 07:13> Orders Ordered: Acetaminophen (Acetaminophen 325 Mg Tablet) 650 mg PO Q6HR PRN PRN Reason: Fever/Mild Pain (1-3) Albuterol (Albuterol 2.5 Mg/3 Ml Neb (Adult)) 2.5 mg INH Q4H PRN PRN Reason: bronchospasm Baclofen (Baclofen 10 Mg Tablet) 20 mg TUBE TID PIA Bisacodyl (Bisacodyl 10 Mg Supp) 10 mg NE DAILY PRN PRN Reason: Constipation Influenza Virus Vaccine (Influenza Vaccine 0.5 Ml Syringe) 0.5 ml IM .ONCE ONE Stop: 02/11/21 09:01 Metoprolol Tartrate (Metoprolol Ir 25 Mg Tablet) 25 mg TUBE BID PIA Naloxone HCl (Naloxone 0.4 Mg/Ml Vial) 0.2 mg IV Q2MIN PRN PRN Reason: Opiate Reversal Non-Formulary Medication (Famotidine) 40 mg TUBE DAILY PIA Non-Formulary Medication (Lactose-Reduced Food With Fibr [Jevity 1 Violeta]) 1 dose Feeding Tube QID PIA Non-Formulary Medication (Ddavp 0. 1 Mg) 0.1 mg PO BID PIA Simethicone (Simethicone Drops 40 Mg/0.6 Ml) 125 mg PO [facility] Last Admin: 02/11/21 00:56 Dose: Not Given Documented by: Sodium Biphosphate/Sodium Phosphate (Fleets Enema) 1 each NE PRN PRN PRN Reason: Constipation Discontinued Medications Sodium Chloride (Normal Saline 0.9%) 1,000 mls @ 1,000 mls/hr IV BOLUS ONE Stop: 02/10/21 18:22 Last Admin: 02/10/21 17:35 Dose: 1,000 mls/hr Documented by: AURELIO Magnesium Citrate (Magnesium Citrate 300 Ml Solution) 300 ml PO NOW ONE Stop: 02/10/21 21:35 Last Admin: 02/10/21 21:47 Dose: 150 ml Documented by: Magnesium Citrate (Magnesium Citrate 300 Ml Solution) 150 ml PO NOW ONE Stop: 02/11/21 00:23 Last Admin: 02/11/21 00:55 Dose: Not Given Documented by: Mineral Oil (Mineral Oil 1 Each Enema) 1 each NE NOW ONE Stop: 02/10/21 17:52 Last Admin: 02/10/21 17:59 Dose: 1 each Documented by: AURELIO Scopolamine (Scopolamine 1 Patch) 1 patch TOP Q72H [facility] Last Admin: 02/11/21 00:56 Dose: Not Given Documented by: Simethicone (Simethicone Drops 40 Mg/0.6 Ml) 20 mg PO NOW ONE Stop: 02/10/21 18:43 Last Admin: 02/10/21 19:00 Dose: 20 mg Documented by: Simethicone (Simethicone Drops 40 Mg/0.6 Ml) 125 mg PO [facility] Vital Signs Vital signs: Vital Signs - 8 hr 02/10/21 18:37 02/10/21 20:25 02/10/21 21:27 Pulse Rate 100 H 106 H 108 H Respiratory Rate 24 14 14 Blood Pressure 142/89 H 144/78 H 129/78 Pulse Oximetry 100 98 98 <Kimberley Juarez MD - Last Filed: 02/11/21 02:28> Orders Ordered: Acetaminophen (Acetaminophen 325 Mg Tablet) 650 mg PO Q6HR PRN PRN Reason: Fever/Mild Pain (1-3) Albuterol (Albuterol 2.5 Mg/3 Ml Neb (Adult)) 2.5 mg INH Q4H PRN PRN Reason: bronchospasm Baclofen (Baclofen 10 Mg Tablet) 20 mg TUBE TID [facility] Bisacodyl (Bisacodyl 10 Mg Supp) 10 mg NE DAILY PRN PRN Reason: Constipation Influenza Virus Vaccine (Influenza Vaccine 0.5 Ml Syringe) 0.5 ml IM .ONCE ONE Stop: 02/11/21 09:01 Metoprolol Tartrate (Metoprolol Ir 25 Mg Tablet) 25 mg TUBE BID [facility] Naloxone HCl (Naloxone 0.4 Mg/Ml Vial) 0.2 mg IV Q2MIN PRN PRN Reason: Opiate Reversal Non-Formulary Medication (Famotidine) 40 mg TUBE DAILY [facility] Non-Formulary Medication (Lactose-Reduced Food With Fibr [Jevity 1 Violeta]) 1 dose Feeding Tube QID [facility] Non-Formulary Medication (Ddavp 0. 1 Mg) 0.1 mg PO BID [facility] Simethicone (Simethicone Drops 40 Mg/0.6 Ml) 125 mg PO [facility] Last Admin: 02/11/21 00:56 Dose: Not Given Documented by: Sodium Biphosphate/Sodium Phosphate (Fleets Enema) 1 each NE PRN PRN PRN Reason: Constipation Discontinued Medications Sodium Chloride (Normal Saline 0.9%) 1,000 mls @ 1,000 mls/hr IV BOLUS ONE Stop: 02/10/21 18:22 Last Admin: 02/10/21 17:35 Dose: 1,000 mls/hr Documented by: AURELIO Magnesium Citrate (Magnesium Citrate 300 Ml Solution) 300 ml PO NOW ONE Stop: 02/10/21 21:35 Last Admin: 02/10/21 21:47 Dose: 150 ml Documented by: Magnesium Citrate (Magnesium Citrate 300 Ml Solution) 150 ml PO NOW ONE Stop: 02/11/21 00:23 Last Admin: 02/11/21 00:55 Dose: Not Given Documented by: Mineral Oil (Mineral Oil 1 Each Enema) 1 each NE NOW ONE Stop: 02/10/21 17:52 Last Admin: 02/10/21 17:59 Dose: 1 each Documented by: AURELIO Scopolamine (Scopolamine 1 Patch) 1 patch TOP Q72H [facility] Last Admin: 02/11/21 00:56 Dose: Not Given Documented by: Simethicone (Simethicone Drops 40 Mg/0.6 Ml) 20 mg PO NOW ONE Stop: 02/10/21 18:43 Last Admin: 02/10/21 19:00 Dose: 20 mg Documented by: Simethicone (Simethicone Drops 40 Mg/0.6 Ml) 125 mg PO [facility] Vital Signs Vital signs: Vital Signs - 8 hr 02/10/21 18:37 02/10/21 20:25 02/10/21 21:27 Pulse Rate 100 H 106 H 108 H Respiratory Rate 24 14 14 Blood Pressure 142/89 H 144/78 H 129/78 Pulse Oximetry 100 98 98 MDM - Abdominal Pain <Tana Hood DO - Last Filed: 02/11/21 07:13> Lab Data Attestation: I reviewed the patient's lab results. Result diagrams: 02/10/21 16:10 02/10/21 16:10 Labs: Lab Results 02/10/21 02/10/21 02/10/21 Range/Units 16:10 16:10 16:10 WBC 8.4 (4.5-11.0) X10^3/uL RBC 4.65 (4.0-5.2) X10^6/uL Hgb 14.6 (12.0-16.0) g/dL Hct 43.6 (36-46) % MCV 93.7 (80-100) fL MCH 31.3 (26-34) PG MCHC 33.4 (30-36) % RDW 12.7 (11.6-14.8) % Plt Count 193 (150-400) X10^3/uL Neut % (Auto) 64.6 (50-75) % Lymph % (Auto) 28.8 (25-40) % [place] % (Auto) 4.9 (3-14) % Eos % (Auto) 1.4 L (2-4) % Baso % (Auto) 0.3 (0-2) % Neut # (Auto) 5400 (7846-5138) /uL Lymph # (Auto) 2400 (9761-4050) /uL [place] # (Auto) 400 (0-900) /uL Eos # (Auto) 100 (0-450) /uL Baso # (Auto) 0 (0-100) /uL Sodium 139 (137-145) mmol/L Potassium 4.3 (3.4-5.1) mmol/L Chloride 107 (98-107) mmol/L Carbon Dioxide 22 (22-32) mmol/L BUN 15 (7-17) mg/dL Creatinine 0.33 L (0.52-1.04) mg/dL Estimated GFR > 60.0 (>60) mL/min BUN/Creatinine Ratio 45.5 H (6-22) Glucose 103 H (70-100) mg/dL Lactate (0.7-2.1) mmol/L Calcium 9.5 (8.4-10.2) mg/dL Total Bilirubin 2.0 H (0.2-1.3) mg/dL AST 40 H (14-36) IU/L ALT 33 (<35) IU/L Alkaline Phosphatase 265 H (38-126) U/L Total Protein 8.9 H (6.3-8.2) g/dL Albumin 4.1 (3.5-5.0) g/dL Globulin 4.8 H (1.7-4.1) g/dL Albumin/Globulin Ratio 0.9 L (1.0-2.8) Lipase (23-300) U/L Serum , Qual Negative (Negative) SARS-CoV-2 (PCR) (Negative) 02/10/21 02/10/21 02/10/21 Range/Units 16:10 16:47 19:11 WBC (4.5-11.0) X10^3/uL RBC (4.0-5.2) X10^6/uL Hgb (12.0-16.0) g/dL Hct (36-46) % MCV (80-100) fL MCH (26-34) PG MCHC (30-36) % RDW (11.6-14.8) % Plt Count (150-400) X10^3/uL Neut % (Auto) (50-75) % Lymph % (Auto) (25-40) % [place] % (Auto) (3-14) % Eos % (Auto) (2-4) % Baso % (Auto) (0-2) % Neut # (Auto) (1653-9052) /uL Lymph # (Auto) (8238-9974) /uL [place] # (Auto) (0-900) /uL Eos # (Auto) (0-450) /uL Baso # (Auto) (0-100) /uL Sodium (137-145) mmol/L Potassium (3.4-5.1) mmol/L Chloride (98-107) mmol/L Carbon Dioxide (22-32) mmol/L BUN (7-17) mg/dL Creatinine (0.52-1.04) mg/dL Estimated GFR (>60) mL/min BUN/Creatinine Ratio (6-22) Glucose (70-100) mg/dL Lactate 2.6 H 0.8 (0.7-2.1) mmol/L Calcium (8.4-10.2) mg/dL Total Bilirubin (0.2-1.3) mg/dL AST (14-36) IU/L ALT (<35) IU/L Alkaline Phosphatase (38-126) U/L Total Protein (6.3-8.2) g/dL Albumin (3.5-5.0) g/dL Globulin (1.7-4.1) g/dL Albumin/Globulin Ratio (1.0-2.8) Lipase 32 (23-300) U/L Serum , Qual (Negative) SARS-CoV-2 (PCR) (Negative) 02/10/21 Range/Units 23:21 WBC (4.5-11.0) X10^3/uL RBC (4.0-5.2) X10^6/uL Hgb (12.0-16.0) g/dL Hct (36-46) % MCV (80-100) fL MCH (26-34) PG MCHC (30-36) % RDW (11.6-14.8) % Plt Count (150-400) X10^3/uL Neut % (Auto) (50-75) % Lymph % (Auto) (25-40) % [place] % (Auto) (3-14) % Eos % (Auto) (2-4) % Baso % (Auto) (0-2) % Neut # (Auto) (4398-3010) /uL Lymph # (Auto) (0659-8924) /uL [place] # (Auto) (0-900) /uL Eos # (Auto) (0-450) /uL Baso # (Auto) (0-100) /uL Sodium (137-145) mmol/L Potassium (3.4-5.1) mmol/L Chloride (98-107) mmol/L Carbon Dioxide (22-32) mmol/L BUN (7-17) mg/dL Creatinine (0.52-1.04) mg/dL Estimated GFR (>60) mL/min BUN/Creatinine Ratio (6-22) Glucose (70-100) mg/dL Lactate (0.7-2.1) mmol/L Calcium (8.4-10.2) mg/dL Total Bilirubin (0.2-1.3) mg/dL AST (14-36) IU/L ALT (<35) IU/L Alkaline Phosphatase (38-126) U/L Total Protein (6.3-8.2) g/dL Albumin (3.5-5.0) g/dL Globulin (1.7-4.1) g/dL Albumin/Globulin Ratio (1.0-2.8) Lipase (23-300) U/L Serum , Qual (Negative) SARS-CoV-2 (PCR) Negative (Negative) Imaging Data Abdominal x-ray: Radiologist's Impression: PROCEDURE: XR ACUTE ABDOMEN SERIES INDICATIONS: abdomen distention TECHNIQUE: One view chest and two views of the abdomen were acquired. COMPARISON: None. FINDINGS: Surgical changes and devices: Extensive spine fusion procedure, crossing from the low cervical through the thoracic through the lumbosacral spine and into the pelvis bilaterally.. Chest: Lungs are clear. Heart size is normal. No pleural effusions. No pneumoperitoneum. Abdomen: Bowel gas pattern is nonspecific and no free air is seen. There is greater bowel gas on the right than the left within the colon.. No suspicious calcifications. Visualized solid organ contours appear normal. Bones: No suspicious bony lesions. IMPRESSION: Bowel gas pattern is nonspecific, and no definite free air is seen on this semi upright view. Extensive spine surgery in the past, reduced inspiratory volume at the lungs bilaterally. Tracheostomy in place partially visualized. Dictated by: Malik Hedrick M.D. on 02/10/2021 at 16:40 CT scan - abdomen/pelvis: Radiologist's Impression: PROCEDURE: CT CHEST ABD PEL W CON INDICATIONS: lots of secretions very distended ab TECHNIQUE: After the administration of intravenous contrast, 5 mm thick sections acquired from the lung apices to the symphysis. 5 mm coronal and sagittal reformats were performed, with additional 7 mm MIP reformats through the lungs. For radiation dose reduction, the following was used: automated exposure control, adjustment of mA and/or kV according to patient size. COMPARISON: [facility], CT, CT CHEST W CON, 11/22/2020, 11:56. FINDINGS: Image quality: Excellent. CHEST: Lungs and pleura: As before, there is basically complete collapse of the right upper lobe, not significantly changed. The right upper lobe bronchus appears to be chronically obstructed. Patchy bibasilar atelectasis. Marked elevation of the right hemidiaphragm, as before. Central and peripheral airways appear patent and normal in caliber. Mediastinum: Heart size is normal. No pericardial effusion. There are multiple enlarged lymph nodes present in the mediastinum. This includes a right paratracheal lymph node on image 24/2 measuring 1.0 x 2.0 cm, as well as a right paratracheal lymph node on image 20/2 which measures 1.3 x 1.4 cm. These are not significantly changed. An enlarged subcarinal lymph node is also not significantly changed, measuring 0.9 x 2.3 cm. Thoracic aorta and central pulmonary arteries are normal in size. Esophagus is normal in caliber. No hiatal hernia. Chest wall: No axillary or supraclavicular adenopathy by size criteria. Thyroid gland contains a 1.7 cm right lobe thyroid nodule. Trach collar ABDOMEN: Solid organs: Liver is normal in size and enhancement. Gallbladder is not identified.. Biliary system is non dilated. Pancreas enhances normally. Spleen is normal in size and enhancement. There is a 4.3 cm fat containing left adrenal mass, presumed to represent an adrenal adenoma. Kidneys demonstrate normal size and enhancement, without hydronephrosis. Nonobstructing left lower pole renal stone. Peritoneum and bowel: A PEG tube is in place. It is present in the stomach. There is a moderately large amount of fecal debris in the colon. There are diffusely prominent loops of small and large bowel, possibly representing ileus pattern. Nodes and vessels: No retroperitoneal or mesenteric adenopathy by size criteria. Aorta and inferior vena cava are normal in size. Miscellaneous: No ventral hernias. PELVIS: Genitourinary: Bladder wall thickness is normal. Miscellaneous: No inguinal hernias or adenopathy. Bones: No suspicious bony lesions. No vertebral body compression fractures. Chau rods span the entirety of the thoracic and lumbar spine. 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 There is degenerative change in the left hip. There is orthopedic fixation of the proximal shaft of the left femur. IMPRESSION: 1. Continued collapse of the right upper lobe, presumed to be a chronic finding. 2. The right upper lobe bronchus appears to be chronically occluded. 3. Marked elevation of the right hemidiaphragm, as before. 4. Large left adrenal adenoma. 5. Gastrostomy tube in satisfactory position. 6. Possible ileus pattern. Dictated by: Kendall Leblanc M.D. on 02/10/2021 at 17:27 MDM Narrative Medical decision making narrative: Patient abdomen is quite distended hypoactive bowel sounds concerned actually for perforation. 1807 Dr. Sauceda updated on symptoms and test results, will review images and call back. 1839 Dr. Sauceda recommends Gas-X and the PEG tube along with Gastrografin enema. At this time not surgical. Signed out to Dr. Nuñez <Kimberley Juarez MD - Last Filed: 02/11/21 02:28> Medical Records Attestation: I reviewed the patient's medical records. Lab Data Attestation: I reviewed the patient's lab results. Labs: Lab Results 02/10/21 02/10/21 02/10/21 Range/Units 16:10 16:10 16:10 WBC 8.4 (4.5-11.0) X10^3/uL RBC 4.65 (4.0-5.2) X10^6/uL Hgb 14.6 (12.0-16.0) g/dL Hct 43.6 (36-46) % MCV 93.7 (80-100) fL MCH 31.3 (26-34) PG MCHC 33.4 (30-36) % RDW 12.7 (11.6-14.8) % Plt Count 193 (150-400) X10^3/uL Neut % (Auto) 64.6 (50-75) % Lymph % (Auto) 28.8 (25-40) % [place] % (Auto) 4.9 (3-14) % Eos % (Auto) 1.4 L (2-4) % Baso % (Auto) 0.3 (0-2) % Neut # (Auto) 5400 (7920-8990) /uL Lymph # (Auto) 2400 (0831-0983) /uL [place] # (Auto) 400 (0-900) /uL Eos # (Auto) 100 (0-450) /uL Baso # (Auto) 0 (0-100) /uL Sodium 139 (137-145) mmol/L Potassium 4.3 (3.4-5.1) mmol/L Chloride 107 (98-107) mmol/L Carbon Dioxide 22 (22-32) mmol/L BUN 15 (7-17) mg/dL Creatinine 0.33 L (0.52-1.04) mg/dL Estimated GFR > 60.0 (>60) mL/min BUN/Creatinine Ratio 45.5 H (6-22) Glucose 103 H (70-100) mg/dL Lactate (0.7-2.1) mmol/L Calcium 9.5 (8.4-10.2) mg/dL Total Bilirubin 2.0 H (0.2-1.3) mg/dL AST 40 H (14-36) IU/L ALT 33 (<35) IU/L Alkaline Phosphatase 265 H (38-126) U/L Total Protein 8.9 H (6.3-8.2) g/dL Albumin 4.1 (3.5-5.0) g/dL Globulin 4.8 H (1.7-4.1) g/dL Albumin/Globulin Ratio 0.9 L (1.0-2.8) Lipase (23-300) U/L Serum , Qual Negative (Negative) SARS-CoV-2 (PCR) (Negative) 02/10/21 02/10/21 02/10/21 Range/Units 16:10 16:47 19:11 WBC (4.5-11.0) X10^3/uL RBC (4.0-5.2) X10^6/uL Hgb (12.0-16.0) g/dL Hct (36-46) % MCV (80-100) fL MCH (26-34) PG MCHC (30-36) % RDW (11.6-14.8) % Plt Count (150-400) X10^3/uL Neut % (Auto) (50-75) % Lymph % (Auto) (25-40) % [place] % (Auto) (3-14) % Eos % (Auto) (2-4) % Baso % (Auto) (0-2) % Neut # (Auto) (1238-8858) /uL Lymph # (Auto) (9131-4291) /uL [place] # (Auto) (0-900) /uL Eos # (Auto) (0-450) /uL Baso # (Auto) (0-100) /uL Sodium (137-145) mmol/L Potassium (3.4-5.1) mmol/L Chloride (98-107) mmol/L Carbon Dioxide (22-32) mmol/L BUN (7-17) mg/dL Creatinine (0.52-1.04) mg/dL Estimated GFR (>60) mL/min BUN/Creatinine Ratio (6-22) Glucose (70-100) mg/dL Lactate 2.6 H 0.8 (0.7-2.1) mmol/L Calcium (8.4-10.2) mg/dL Total Bilirubin (0.2-1.3) mg/dL AST (14-36) IU/L ALT (<35) IU/L Alkaline Phosphatase (38-126) U/L Total Protein (6.3-8.2) g/dL Albumin (3.5-5.0) g/dL Globulin (1.7-4.1) g/dL Albumin/Globulin Ratio (1.0-2.8) Lipase 32 (23-300) U/L Serum , Qual (Negative) SARS-CoV-2 (PCR) (Negative) 02/10/21 Range/Units 23:21 WBC (4.5-11.0) X10^3/uL RBC (4.0-5.2) X10^6/uL Hgb (12.0-16.0) g/dL Hct (36-46) % MCV (80-100) fL MCH (26-34) PG MCHC (30-36) % RDW (11.6-14.8) % Plt Count (150-400) X10^3/uL Neut % (Auto) (50-75) % Lymph % (Auto) (25-40) % [place] % (Auto) (3-14) % Eos % (Auto) (2-4) % Baso % (Auto) (0-2) % Neut # (Auto) (8406-5563) /uL Lymph # (Auto) (1736-6189) /uL [place] # (Auto) (0-900) /uL Eos # (Auto) (0-450) /uL Baso # (Auto) (0-100) /uL Sodium (137-145) mmol/L Potassium (3.4-5.1) mmol/L Chloride (98-107) mmol/L Carbon Dioxide (22-32) mmol/L BUN (7-17) mg/dL Creatinine (0.52-1.04) mg/dL Estimated GFR (>60) mL/min BUN/Creatinine Ratio (6-22) Glucose (70-100) mg/dL Lactate (0.7-2.1) mmol/L Calcium (8.4-10.2) mg/dL Total Bilirubin (0.2-1.3) mg/dL AST (14-36) IU/L ALT (<35) IU/L Alkaline Phosphatase (38-126) U/L Total Protein (6.3-8.2) g/dL Albumin (3.5-5.0) g/dL Globulin (1.7-4.1) g/dL Albumin/Globulin Ratio (1.0-2.8) Lipase (23-300) U/L Serum , Qual (Negative) SARS-CoV-2 (PCR) Negative (Negative) MDM Narrative Medical decision making narrative: 35-year-old woman with cerebral palsy presents with abdominal distention and pain. CT scan shows an ileus quite a bit of air and a large amount of stool. In trying to help with this obstipation, she has had simethicone through her G-tube as well as 150 cc of magnesium citrate. She has had a mineral oil enema as well as a Gastrografin enema. None of these have resulted in any stool movement there has been a bit of increased flatus. Because she is so uncomfortable and her baseline status is so compromised with the cerebral palsy will recommend hospital admission. Would like to see if any of these interventions have an effect prior to proceeding with more and precipitating voluminous diarrhea. Care was reviewed with hospital nurse practitioner, Janelle Retana. Care is excepted Findings and plans were reviewed with patient and her father who is her primary grounds caretaker. Both her amenable to hospital admission. She is safe for transfer to the floor at this time Discharge Plan Departure Patient Disposition: Admitted as Observation Clinical Impression: Obstipation Cerebral palsy Qualifiers: Cerebral palsy type: unspecified type Qualified Code(s): G80.9 - Cerebral palsy, unspecified Admit Date/Time: 02/10/21 23:21 Admit Provider: Sandee Retana
[2021-02-10 16:15] LABS: Add Manual Diff / Slide Review NO; Basophils Absolute Auto 0 /uL (0-100); Basophils Percent Auto 0.3 % (0-2); Eosinophils Absolute Auto 100 /uL (0-450); Eosinophils Percent Auto 1.4 % (2-4); Hematocrit 43.6 % (36-46); Hemoglobin 14.6 g/dL (12.0-16.0); Lymphocytes Absolute Auto 2400 /uL (1100-4500); Lymphocytes Percent Auto 28.8 % (25-40); Mean Corpuscular HGB Conc 33.4 % (30-36); Mean Corpuscular Hemoglobin 31.3 PG (26-34); Mean Corpuscular Volume 93.7 fL (80-100); Monocytes Absolute Auto 400 /uL (0-900); Monocytes Percent Auto 4.9 % (3-14); Neutrophils Absolute Auto 5400 /uL (1500-7000); Neutrophils Percent Auto 64.6 % (50-75); Platelet Count 193 X10^3/uL (150-400); Red Blood Cell Count 4.65 X10^6/uL (4.0-5.2); Red Cell Distribution Width 12.7 % (11.6-14.8); White Blood Cell Count 8.4 X10^3/uL (4.5-11.0)
[2021-02-10 16:27] LABS: Pregnancy Test Serum,Qual Negative (Negative)
[2021-02-10 16:36] LABS: Alanine Aminotransferase 33 IU/L (<35); Albumin 4.1 g/dL (3.5-5.0); Albumin Globulin Ratio 0.9 (1.0-2.8); Alkaline Phosphatase 265 U/L (38-126); Aspartate Aminotransferase 40 IU/L (14-36); BUN Creatinine Ratio 45.5 (6-22); Blood Urea Nitrogen 15 mg/dL (7-17); Calcium 9.5 mg/dL (8.4-10.2); Carbon Dioxide 22 mmol/L (22-32); Chloride 107 mmol/L (98-107); Estimated Glomerular Filt Rate > 60.0 mL/min (>60); Globulin 4.8 g/dL (1.7-4.1); Glucose 103 mg/dL (70-100); Potassium 4.3 mmol/L (3.4-5.1); Sodium 139 mmol/L (137-145); Total Protein 8.9 g/dL (6.3-8.2)
[2021-02-10 16:37] LABS: HEMOLYSIS 54 (0-50)
--- NOTE | 2021-02-10 16:53 | DI.CT.S_ITS ---
PROCEDURE: CT CHEST ABD PEL W CON INDICATIONS: lots of secretions very distended ab TECHNIQUE: After the administration of intravenous contrast, 5 mm thick sections acquired from the lung apices to the symphysis. 5 mm coronal and sagittal reformats were performed, with additional 7 mm MIP reformats through the lungs. For radiation dose reduction, the following was used: automated exposure control, adjustment of mA and/or kV according to patient size. COMPARISON: [facility], CT, CT CHEST W CON, 11/22/2020, 11:56. FINDINGS: Image quality: Excellent. CHEST: Lungs and pleura: As before, there is basically complete collapse of the right upper lobe, not significantly changed. The right upper lobe bronchus appears to be chronically obstructed. Patchy bibasilar atelectasis. Marked elevation of the right hemidiaphragm, as before. Central and peripheral airways appear patent and normal in caliber. Mediastinum: Heart size is normal. No pericardial effusion. There are multiple enlarged lymph nodes present in the mediastinum. This includes a right paratracheal lymph node on image 24/2 measuring 1.0 x 2.0 cm, as well as a right paratracheal lymph node on image 20/2 which measures 1.3 x 1.4 cm. These are not significantly changed. An enlarged subcarinal lymph node is also not significantly changed, measuring 0.9 x 2.3 cm. Thoracic aorta and central pulmonary arteries are normal in size. Esophagus is normal in caliber. No hiatal hernia. Chest wall: No axillary or supraclavicular adenopathy by size criteria. Thyroid gland contains a 1.7 cm right lobe thyroid nodule. Trach collar ABDOMEN: Solid organs: Liver is normal in size and enhancement. Gallbladder is not identified.. Biliary system is non dilated. Pancreas enhances normally. Spleen is normal in size and enhancement. There is a 4.3 cm fat containing left adrenal mass, presumed to represent an adrenal adenoma. Kidneys demonstrate normal size and enhancement, without hydronephrosis. Nonobstructing left lower pole renal stone. Peritoneum and bowel: A PEG tube is in place. It is present in the stomach. There is a moderately large amount of fecal debris in the colon. There are diffusely prominent loops of small and large bowel, possibly representing ileus pattern. Nodes and vessels: No retroperitoneal or mesenteric adenopathy by size criteria. Aorta and inferior vena cava are normal in size. Miscellaneous: No ventral hernias. PELVIS: Genitourinary: Bladder wall thickness is normal. Miscellaneous: No inguinal hernias or adenopathy. Bones: No suspicious bony lesions. No vertebral body compression fractures. Chau rods span the entirety of the thoracic and lumbar spine. 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 There is degenerative change in the left hip. There is orthopedic fixation of the proximal shaft of the left femur. IMPRESSION: 1. Continued collapse of the right upper lobe, presumed to be a chronic finding. 2. The right upper lobe bronchus appears to be chronically occluded. 3. Marked elevation of the right hemidiaphragm, as before. 4. Large left adrenal adenoma. 5. Gastrostomy tube in satisfactory position. 6. Possible ileus pattern. Dictated by: Kendall Leblanc M.D. on 02/10/2021 at 17:27 Approved by: Kendall Leblanc M.D. on 02/10/2021 at 17:38
[2021-02-10 16:54] LABS: Lipase 32 U/L (23-300)
[2021-02-10 17:10] LABS: Lactate (Lactic Acid) 2.6 mmol/L (0.7-2.1)
[2021-02-10] MEDS: SODIUM CHLORIDE 0.9% 1,000 ML 1000 ML IV (17:35)
[2021-02-10] MEDS: MINERAL OIL 1 EACH ENEMA PR (17:59)
[2021-02-10 18:58] LABS: Reflexed Lactate in 2 Hours Y
[2021-02-10] MEDS: SIMETHICONE DROPS 40 MG/0.6 ML 20 MG PO (19:00)
[2021-02-10 19:38] LABS: Lactate 2HR (Lactic Acid Rflx) 0.8 mmol/L (0.7-2.1)
[2021-02-10] MEDS: MAGNESIUM CITRATE 300 ML SOLUTION PO (21:47)
[2021-02-11 00:13] VITALS: BMI 23.5
[2021-02-11 00:20] LABS: COVID19 - ADMIT (NP swab/PCR) Negative (Negative)
--- NOTE | 2021-02-11 00:27 | P.HP_ITS ---
History of Present Illness History of Present Illness Date Patient Seen: 02/11/21 Time Patient Seen: 00:15 Chief complaint: Abdominal pain Narrative: Ana Pacheco is a 35 y.o. female with profound cerebral palsy, history of diabetes insipidus, bruxism with poor dentition, tracheostomy dependent, G-tube and EVANGELISTA by way of the gastrointestinal tract-dependent, amenorrhea due to Depo- Provera who presented with a 3 day history of constipation. Father, Handy, states that she usually has a bm every other day and will deficate on alternate days with rabbit pellots. Patient has cerebal palsey due to an anoxic brain injury at and is profoundly disabled. She is unable to provide a history for me as she is non-verbal. Father states this has happened one time before, they a bowel prep but her constipation did not resolve until after she arrived back to her home. 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 She is fed by G-tube 4 times a day and has fresh water boluses 6 times a day. Abdominal x-ray was negative however the abdominal CT indicated a large amount of stool in her colon and there was a question is to whether she had an ileus. Patient's temp is 99.1?, blood pressure 129/78, heart rate 108, respiratory rate 14, oxygen saturation of 90% on room air, she weighs 56.5 kg with a BMI of 23.5. CBC largely within normal limits, glucose is 103, bilirubin is elevated at 2.2, AST 40, alk-phos 265, test is negative, and COVID-19 PCR is negative. Patient History Medical History Aspiration pneumonia Cerebral palsy Developmental delay, mild Diabetes insipidus (~1982) Granulation tissue of site of tracheostomy History of anoxic brain injury Pneumonia Scoliosis (~1995) Tracheostomy granuloma Surgical History Anesthesia Arthritis of right hip (~1992) G tube feedings (~1996) History of release of tendon History of tracheostomy (~1996) Surgical procedure planned (~1992) Family & Social History Family History Father Age: 79 Non-Hodgkin lymphoma Diabetes mellitus Heart disease Hypertension High cholesterol Pacemaker Grandmother Heart disease Hypertension High cholesterol Stroke Cancer Mother Diabetes mellitus Ovarian cancer Grandfather Cancer Grandmother Diabetes mellitus Heart disease Hypertension High cholesterol Stroke Social History: household members family Safety & Behavioral: Feels Safe in Current Yes Environment Been Physically Hurt or No Threatened By a Person Tobacco & Substance use: Smoking Status Never smoker alcohol intake frequency holiday/special occasion Substance Use Type does not use Meds Home Medications and Allergies Home Medications Medication Instructions Recorded Confirmed Type [Jevity 1 violeta] 4 can QDAY #0 08/22/16 10/08/20 Rx [Button Kit] 1 kit QMONTH #1 kit 11/16/16 10/08/20 Rx simethicone [Gas-X Extra Strength] 125 mg PO QID #120 tab 05/07/17 10/08/20 Rx guaifenesin [Mucinex] 600 mg PO Q12H PRN #1 ea 07/27/17 10/08/20 Rx lactose-reduced food with fibr 1 dose FEEDING TUBE QID 05/29/18 10/08/20 History [Jevity 1 Violeta] Nebulizer Mask: Adult 1 ea MISCELLANEOUS DIRECTED 06/03/18 10/08/20 History [INNER CANNULA] 1 ea MISCELLANEOUS DIRECTED 06/03/18 10/08/20 History [L Adult Briefs] 1 pac MISCELLANEOUS SEE 06/03/18 10/08/20 History INSTRUCTIONS [SUCTION CATHETER ] 1 ea MISCELLANEOUS DIRECTED 06/03/18 10/08/20 History [SUCTION TUBING] 1 ea MISCELLANEOUS DIRECTED 06/03/18 10/08/20 History [sterile water] 1 ea MISCELLANEOUS DIRECTED 06/03/18 10/08/20 History [thermal vents] 1 u SEE INSTRUCTIONS 06/03/18 10/08/20 History [trach ties] 1 ea MISCELLANEOUS DIRECTED 06/03/18 10/08/20 History simethicone [Gas Relief 20 mg PO QIDP PRN 06/03/18 10/08/20 History (simethicone)] docusate sodium 50 mg/5 mL oral 50 mg PO DAILY #473 ml 11/20/18 10/08/20 Rx liquid famotidine 40 mg/5 mL (8 mg/mL) 40 mg PO DAILY #150 ml 09/09/19 10/08/20 Rx oral suspension carbamide peroxide 6.5 % ear drops 4 drop OTIC (EAR) BID #15 ml 09/24/19 10/08/20 Rx ranitidine HCl 15 mg/mL oral syrup 150 mg PO DAILY #473 ml 12/22/19 10/08/20 Rx [G-Tube ] #1 ea 04/05/20 10/08/20 Rx G-tube kit 16F 3.0cm Marquez button #1 ea 04/13/20 10/08/20 Rx desmopressin 0.1 mg tablet 0.1 mg PO BID #180 tab 05/12/20 10/08/20 Rx augmentin 600 mg FEEDING TUBE BID #100 ml 07/16/20 10/08/20 Rx fluconazole 150 mg tablet 150 mg PO DAILY #2 tab 07/16/20 10/08/20 Rx baclofen 20 mg tablet 20 mg PO TID #270 tab 11/08/20 Rx metoprolol tartrate 25 mg tablet 25 mg FEEDING TUBE BID #180 tab 11/08/20 Rx scopolamine base 1 mg over 3 days 1 patch TRANSDERMAL Q72H #24 ea 12/06/20 Rx transdermal patch medroxyprogesterone 150 mg/mL 150 mg IM ONCE #1 ml 12/20/20 Rx intramuscular syringe Shiley Flex Cuffless Reuseable #1 ea 12/24/20 Rx Trach Tube 6.5mm albuterol sulfate 2.5 mg CONTINUOUS NEBULIZATION 01/20/21 Rx Q4HP PRN #25 each Allergies Allergy/AdvReac Type Severity Reaction Status Date / Time No Known Drug Allergies Allergy Verified 07/27/19 18:36 Exam Vital Signs (past 8 hours): - 02/10/21 16:28 02/10/21 17:06 02/10/21 17:40 Temperature 99.1 F Pulse Rate 112 H 104 H Respiratory Rate 24 20 16 Blood Pressure 130/89 128/74 Pulse Oximetry 96 99 96 02/10/21 18:37 02/10/21 20:25 02/10/21 21:27 Temperature Pulse Rate 100 H 106 H 108 H Respiratory Rate 24 14 14 Blood Pressure 142/89 H 144/78 H 129/78 Pulse Oximetry 100 98 98 Oxygen Delivery Method Room Air Narrative Exam Narrative: Gen: Alert, well nourished 35 y.o. female, NAD HEENT: normocephalic, atraumatic, conjunctiva clear, sclera non-icteric, oral mucosa pink and moist Neck: supple, full ROM, no JVD, trachea is midline Resp: Lungs CTA, non-labored breathing CV: RRR, no murmur or rubs Abd: Distended, hard, nontender with no bowel tones Skin: Pale, no lesions or rashes, dry and intact Neuro: Awake and oriented to name only, profoundly disabled, non-verbal. Extremities: Hands in mitts moves all 4 extremities, is ambulatory Psyche: Cooperative at this time Objective Labs Result Diagrams: 02/10/21 16:10 02/10/21 16:10 Labs: Laboratory Results - last 24 hr 02/10/21 02/10/21 02/10/21 16:10 16:10 16:10 WBC 8.4 RBC 4.65 Hgb 14.6 Hct 43.6 MCV 93.7 MCH 31.3 MCHC 33.4 RDW 12.7 Plt Count 193 Neut % (Auto) 64.6 Lymph % (Auto) 28.8 [place] % (Auto) 4.9 Eos % (Auto) 1.4 L Baso % (Auto) 0.3 Neut # (Auto) 5400 Lymph # (Auto) 2400 [place] # (Auto) 400 Eos # (Auto) 100 Baso # (Auto) 0 Sodium 139 Potassium 4.3 Chloride 107 Carbon Dioxide 22 BUN 15 Creatinine 0.33 L Estimated GFR > 60.0 BUN/Creatinine Ratio 45.5 H Glucose 103 H Lactate Calcium 9.5 Total Bilirubin 2.0 H AST 40 H ALT 33 Alkaline Phosphatase 265 H Total Protein 8.9 H Albumin 4.1 Globulin 4.8 H Albumin/Globulin Ratio 0.9 L Lipase Serum , Qual Negative SARS-CoV-2 (PCR) 02/10/21 02/10/21 02/10/21 16:10 16:47 19:11 WBC RBC Hgb Hct MCV MCH MCHC RDW Plt Count Neut % (Auto) Lymph % (Auto) [place] % (Auto) Eos % (Auto) Baso % (Auto) Neut # (Auto) Lymph # (Auto) [place] # (Auto) Eos # (Auto) Baso # (Auto) Sodium Potassium Chloride Carbon Dioxide BUN Creatinine Estimated GFR BUN/Creatinine Ratio Glucose Lactate 2.6 H 0.8 Calcium Total Bilirubin AST ALT Alkaline Phosphatase Total Protein Albumin Globulin Albumin/Globulin Ratio Lipase 32 Serum , Qual SARS-CoV-2 (PCR) 02/10/21 23:21 WBC RBC Hgb Hct MCV MCH MCHC RDW Plt Count Neut % (Auto) Lymph % (Auto) [place] % (Auto) Eos % (Auto) Baso % (Auto) Neut # (Auto) Lymph # (Auto) [place] # (Auto) Eos # (Auto) Baso # (Auto) Sodium Potassium Chloride Carbon Dioxide BUN Creatinine Estimated GFR BUN/Creatinine Ratio Glucose Lactate Calcium Total Bilirubin AST ALT Alkaline Phosphatase Total Protein Albumin Globulin Albumin/Globulin Ratio Lipase Serum , Qual SARS-CoV-2 (PCR) Negative Assessment & Plan Assessment & Plan narrative: Ana Ray will be kept overnight in observation in order to attempt to resolve her obstipation. Obstipation, acute and present on admission -Attempt fleet enamas -Simethicone 120 mg liquid suspension and magnesium citrate per g-tube prn Essential hypertension, chronic -currently normotensive -Continue home dose of metoprolol 25 mg per g-tube bid if her pressures can tolerate Cerebral palsey, chronic and lifelong, present on admission -Continue baclofen 20 mg per g-tube tid for spasms -Father to provide button closure for G-tube -Father to provide tracheotomy supplies Central diabetes insipidus, chronic -Continue home dose of desmopressin 0.1 mg per g-tube bid VTE prophylaxis: Wells risk score: 0 knee high compression stockings Consults: Dr. Sauceda, General Surgery consult and involvement is appreciated. Patient is observation status as her stay is not likely to exceed 2 midnights. FEN: IV saline lock, NPO Dispo: discharge to home once she has had an adequate bowel movement Code Status: DNAR after review of her recently signed POLST and last PCP visit. Father is her DPOA Scores Wells' Criteria for PE Clinical signs and symptoms of DVT: No PE is #1 Dx or equally likely: No Heart rate > 100: No Immobilization at least 3 days or surg in previous 4 weeks: Yes History of PE or DVT: No Hemoptysis: No Malignancy w/Treatment within 6 months or palliative: No Wells' PE Score total: 1.5 Quality VTE Deep Vein Thrombosis/Pulmonary Embolism Present on Admission: No MIPS - Admit I confirm the patient?s Advance Care Plan is present, Code status is documented, Surrogate decision maker is in patient?s record [If Yes, STOP here]: Yes
[2021-02-11 00:40] VITALS: BP 113/85; PULSE 130; RESP 28; TEMP 36.7; O2SAT 100
--- NOTE | 2021-02-11 05:24 | PC.NURSE ---
0530- Patient brief changed. Moderate amount of brown stool and urine noted. Patient also passed a large amount of gas. Abdomen is less firm and patient does not appear as uncomfortable as she was upon admission. Patient does remain tachycardic but otherwise vitals are WNL. Father remains at bedside.
[2021-02-11 07:00] VITALS: O2SAT 100
[2021-02-11 08:00] VITALS: BP 117/85; PULSE 120; RESP 26; TEMP 37.1; O2SAT 100
--- NOTE | 2021-02-11 09:05 | P.DS_ITS ---
History of Present Illness History of Present Illness Date Patient Seen: 02/11/21 Time Patient Seen: 09:05 Chief complaint: Abdominal pain Narrative: Per ZENA Youssef: Ana Pacheco is a 35 y.o. female with profound cerebral palsy, history of diabetes insipidus, bruxism with poor dentition, tracheostomy dependent, G-tube and EVANGELISTA by way of the gastrointestinal tract-dependent, amenorrhea due to Depo- Provera who presented with a 3 day history of constipation. Father, Handy, states that she usually has a bm every other day and will deficate on alternate days with rabbit pellots. Patient has cerebal palsey due to an anoxic brain injury at and is profoundly disabled. She is unable to provide a history for me as she is non-verbal. Father states this has happened one time before, they a bowel prep but her constipation did not resolve until after she arrived back to her home. On 01/20/21, she was seen by ZENA Ervin and her father who is her DPOA signed a [facility] POLST form indicating she is a DNR/DNI with care home tube feedings and that her care be focused on comfort measures. She is fed by G -tube 4 times a day and has fresh water boluses 6 times a day. Abdominal x-ray was negative however the abdominal CT indicated a large amount of stool in her colon and there was a question is to whether she had an ileus. Patient's temp is 99.1?, blood pressure 129/78, heart rate 108, respiratory rate 14, oxygen saturation of 90% on room air, she weighs 56.5 kg with a BMI of 23.5. CBC largely within normal limits, glucose is 103, bilirubin is elevated at 2.2, AST 40, alk-phos 265, test is negative, and COVID-19 PCR is negative. Discharge Providers Provider Date of admission: 02/10/21 23:21 Discharge Date: 02/11/21 Primary care physician: ZENA Ervin Consults: 02/11/21 00:16 Consult to Physician Routine Comment: Consulting Provider: Anita Sauceda Reason for consultation: Obstipation Has provider been notified: Yes Discharge provider: Nick Garza DO Summary Hospital Course Discharge Diagnosis: Obstipation, acute and present on admission, improved Essential hypertension, chronic Cerebral palsy, chronic and lifelong, present on admission Hospital Course: Ana Pachceo is a 35 y.o. female with profound cerebral palsy , history of diabetes insipidus, bruxism with poor dentition, tracheostomy dependent, G-tube who was admitted for obstipation and abdominal pain. Following some enemas and Mag citrate through her G-tube she was able to have a bowel movement and appeared much more comfortable. She was able to be di scharged home. No medication changes are currently recommended, however magnesium citrate can be given if the patient does not have a bowel movement for a few days through her gastric tube. Exam Vital Signs (past 8 hours): - 02/11/21 08:00 Temperature 98.8 F Pulse Rate 120 H Respiratory Rate 26 H Blood Pressure 117/85 Pulse Oximetry 100 Oxygen Delivery Method Room Air Oxygen Flow Rate 0 Narrative Exam Narrative: Gen: Alert, well nourished 35 y.o. female, NAD HEENT: normocephalic, atraumatic, conjunctiva clear, sclera non-icteric, oral mucosa pink and moist Neck: supple, full ROM, no JVD, trachea is midline Resp: Lungs CTA, non-labored breathing CV: RRR, no murmur or rubs Abd: soft, minimally distended Skin: Pale, no lesions or rashes, dry and intact Neuro: Awake, non-verbal. Extremities: Hands in mitts moves all 4 extremities Objective Labs Result Diagrams: 02/10/21 16:10 02/10/21 16:10 Labs: Laboratory Results - last 24 hr 02/10/21 02/10/21 02/10/21 16:10 16:10 16:10 WBC 8.4 RBC 4.65 Hgb 14.6 Hct 43.6 MCV 93.7 MCH 31.3 MCHC 33.4 RDW 12.7 Plt Count 193 Neut % (Auto) 64.6 Lymph % (Auto) 28.8 [place] % (Auto) 4.9 Eos % (Auto) 1.4 L Baso % (Auto) 0.3 Neut # (Auto) 5400 Lymph # (Auto) 2400 [place] # (Auto) 400 Eos # (Auto) 100 Baso # (Auto) 0 Sodium 139 Potassium 4.3 Chloride 107 Carbon Dioxide 22 BUN 15 Creatinine 0.33 L Estimated GFR > 60.0 BUN/Creatinine Ratio 45.5 H Glucose 103 H Lactate Calcium 9.5 Total Bilirubin 2.0 H AST 40 H ALT 33 Alkaline Phosphatase 265 H Total Protein 8.9 H Albumin 4.1 Globulin 4.8 H Albumin/Globulin Ratio 0.9 L Lipase Serum , Qual Negative SARS-CoV-2 (PCR) 02/10/21 02/10/21 02/10/21 16:10 16:47 19:11 WBC RBC Hgb Hct MCV MCH MCHC RDW Plt Count Neut % (Auto) Lymph % (Auto) [place] % (Auto) Eos % (Auto) Baso % (Auto) Neut # (Auto) Lymph # (Auto) [place] # (Auto) Eos # (Auto) Baso # (Auto) Sodium Potassium Chloride Carbon Dioxide BUN Creatinine Estimated GFR BUN/Creatinine Ratio Glucose Lactate 2.6 H 0.8 Calcium Total Bilirubin AST ALT Alkaline Phosphatase Total Protein Albumin Globulin Albumin/Globulin Ratio Lipase 32 Serum , Qual SARS-CoV-2 (PCR) 02/10/21 23:21 WBC RBC Hgb Hct MCV MCH MCHC RDW Plt Count Neut % (Auto) Lymph % (Auto) [place] % (Auto) Eos % (Auto) Baso % (Auto) Neut # (Auto) Lymph # (Auto) [place] # (Auto) Eos # (Auto) Baso # (Auto) Sodium Potassium Chloride Carbon Dioxide BUN Creatinine Estimated GFR BUN/Creatinine Ratio Glucose Lactate Calcium Total Bilirubin AST ALT Alkaline Phosphatase Total Protein Albumin Globulin Albumin/Globulin Ratio Lipase Serum , Qual SARS-CoV-2 (PCR) Negative [facility] Medical History Aspiration pneumonia Cerebral palsy Developmental delay, mild Diabetes insipidus (~1982) Granulation tissue of site of tracheostomy History of anoxic brain injury Pneumonia Scoliosis (~1995) Tracheostomy granuloma Surgical History Anesthesia Arthritis of right hip (~1992) G tube feedings (~1996) History of release of tendon History of tracheostomy (~1996) Surgical procedure planned (~1992) Family History Father Age: 79 Non-Hodgkin lymphoma Diabetes mellitus Heart disease Hypertension High cholesterol Pacemaker Grandmother Heart disease Hypertension High cholesterol Stroke Cancer Mother Diabetes mellitus Ovarian cancer Grandfather Cancer Grandmother Diabetes mellitus Heart disease Hypertension High cholesterol Stroke Social History household members: family Smoking Status: Never smoker Discharge Plan Discharge Plan Patient Disposition: Home Provider Discharge Comment: Patient admitted to the hospital with difficulties with bowel movements. She was able to have a bowel movement with use of enemas and mag citrate. This can be purchased over the counter and can be used via the G tube at home. Discharge orders & Medications Prescriptions: Continued [Jevity 1 violeta] 4 can QDAY Qty: 0 RF: 0 [Button Kit] 1 kit QMONTH Qty: 1 RF: 12 simethicone [Gas-X Extra Strength] 125 MG tablet,chewable 125 mg PO QID Qty: 120 RF: 2 famotidine 40 mg/5 mL (8 mg/mL) suspension 40 mg PO DAILY Qty: 150 RF: 11 ranitidine HCl 15 mg/mL syrup 150 mg PO DAILY Qty: 473 RF: 11 (DME) [G-Tube ] See Rx Instructions .Route .MEDSUPPLY Qty: 1 RF: 6 (DME) G-tube kit 16F 3.0cm Marquez button Qty: 1 RF: 11 desmopressin [DDAVP] 0.1 mg tablet 0.1 mg PO BID Qty: 180 RF: 3 baclofen 20 mg tablet 20 mg PO TID Qty: 270 RF: 3 metoprolol tartrate 25 mg tablet 25 mg feeding tube BID Qty: 180 RF: 3 medroxyprogesterone 150 mg/mL syringe 150 mg IM ONCE Qty: 1 RF: 3 (DME) Shiley Flex Cuffless Reuseable Trach Tube 6.5mm 0 .Route .MEDSUPPLY Qty: 1 RF: 11 albuterol sulfate 2.5 mg /3 mL (0.083 %) solution for nebulization 2.5 mg continuous nebulization Q4HP PRN (Reason: bronchospasm) Qty: 25 RF: 2 docusate sodium 50 mg/5 mL liquid 50 mg PO DAILY Qty: 473 RF: 1 carbamide peroxide [Debrox] 6.5 % drops 4 drop otic (ear) BID Qty: 15 RF: 0 augmentin liquid 600 mg feeding tube BID Qty: 100 RF: 0 lactose-reduced food with fibr [Jevity 1 Violeta] 0.04 gram-1.06 kcal/mL Liquid 1 dose Feeding Tube QID RF: 0 simethicone [Gas Relief (simethicone)] 40 MG/0.6 ML drops,suspension 20 mg PO QIDP PRN (Reason: Acid Reflux) RF: 0 Nebulizer Mask: Adult 1 ea miscellaneous DIRECTED RF: 0 [INNER CANNULA] 1 ea miscellaneous DIRECTED RF: 0 [L Adult Briefs] 1 pac miscellaneous SEE INSTRUCTIONS RF: 0 [SUCTION CATHETER ] 1 ea miscellaneous DIRECTED RF: 0 [SUCTION TUBING] 1 ea miscellaneous DIRECTED RF: 0 [sterile water] 1 ea miscellaneous DIRECTED RF: 0 [thermal vents] 1 u SEE INSTRUCTIONS RF: 0 [trach ties] 1 ea miscellaneous DIRECTED RF: 0 Follow up/Referrals: Ann Marie Martin ARNP [Primary Care Provider] - Diet/Activity/Treatments Diet: Diet as Tolerated and Tube Feeding Activity: As tolerated Discharge Data Primary Care Provider: Ann Marie Martin Attending Provider: Sandee Retana VTE Deep Vein Thrombosis/Pulmonary Embolism Present on Admission: No
[2021-02-11] MEDS: LACTOSE REDUCED FOOD WITH FIBR Feeding Tube ×2 (10:05→16:59)
[2021-02-11] MEDS: [UNRECOGNIZED DRUG - OTHER] Feeding Tube ×2 (10:05→16:59)
--- NOTE | 2021-02-11 10:29 | PC.NURSE ---
Addendum entered by Jazz Coombs R.N. 02/11/21 18:46: Pt loaded with EMS and father riding along to home @ 1740. Pt comfortable, and Father appreciative of care. Addendum entered by Jazz Coombs R.N. 02/11/21 17:14: Pt is tolerating home feedings of Jevity 1.0 with fiber, and father is administering medication per mar. Plan to d/c home @ 1500, however, cabulance arrived with standard wheelchair, which Pt can not use safely, as she requires a tilt/space w/c. Father is quite upset at this change of plans, understands it was a mistake in communication. CM able to arrange Father to ride with Pt to get home @ 1730. He is less upset with this RN after updating of the POC and getting Pt home this afternoon. Continues with gravity TF and Pt continues with flatus and BM smears. Original Note: Am shift Pt is Alert to voice, tracking this RN movement in room. Father at bedside and is assistive in communication with Patient and explains care, as he is providing 24/7 caregiving for patient. BT+ Pt is passing copious amounts of flatus, and BM on previous shift, with smearing so far this AM. Per Dr Garza, D/c planning for later today. Turning q2. Trach capped with dressing change later this shift. Father at bedside and providing suction per Pt request. VSS. Turning q2 to offload pressure.
[2021-02-11] MEDS: BACLOFEN 10 MG TABLET 20 MG TUBE ×2 (10:30→17:00)
[2021-02-11] MEDS: DDAVP 0.1 EACH PO (10:41)
[2021-02-11] MEDS: METOPROLOL IR 25 MG TABLET TUBE (10:54)
[2021-02-11] MEDS: SIMETHICONE DROPS 40 MG/0.6 ML 125 MG PO ×2 (10:56→17:13)
--- NOTE | 2021-02-11 11:31 | P.CONS_ITS ---
History of Present Illness Consult details Date Patient Seen: 02/11/21 Time Patient Seen: 10:31 Chief complaint: Abdominal pain Reason for consult: constipation Requesting provider: Tana Hood Narrative: Patient with CP brought in by caregiver for distended abdomin and constipation. Patient in nonverbal with PEG tube and trach in place. I reviewed CT scan last evening and agree with no perforation, gaseous and dilated small bowel with moderate to severe colonic stool burden. there were other incidental findings reported by radiology that are not addressed at this time. recommended continue with aggressive bowel regimen and Gas X via PEG. She has had good results already. Meds Home Medications and Allergies Home Medications Medication Instructions Recorded Confirmed Type [Jevity 1 jovan] 4 can QDAY #0 08/22/16 10/08/20 Rx [Button Kit] 1 kit QMONTH #1 kit 11/16/16 10/08/20 Rx simethicone [Gas-X Extra Strength] 125 mg PO QID #120 tab 05/07/17 10/08/20 Rx lactose-reduced food with fibr 1 dose FEEDING TUBE QID 05/29/18 10/08/20 History [Jevity 1 Jovan] Nebulizer Mask: Adult 1 ea MISCELLANEOUS DIRECTED 06/03/18 10/08/20 History [INNER CANNULA] 1 ea MISCELLANEOUS DIRECTED 06/03/18 10/08/20 History [L Adult Briefs] 1 pac MISCELLANEOUS SEE 06/03/18 10/08/20 History INSTRUCTIONS [SUCTION CATHETER ] 1 ea MISCELLANEOUS DIRECTED 06/03/18 10/08/20 History [SUCTION TUBING] 1 ea MISCELLANEOUS DIRECTED 06/03/18 10/08/20 History [sterile water] 1 ea MISCELLANEOUS DIRECTED 06/03/18 10/08/20 History [thermal vents] 1 u SEE INSTRUCTIONS 06/03/18 10/08/20 History [trach ties] 1 ea MISCELLANEOUS DIRECTED 06/03/18 10/08/20 History simethicone [Gas Relief 20 mg PO QIDP PRN 06/03/18 10/08/20 History (simethicone)] docusate sodium 50 mg/5 mL oral 50 mg PO DAILY #473 ml 11/20/18 10/08/20 Rx liquid famotidine 40 mg/5 mL (8 mg/mL) 40 mg PO DAILY #150 ml 09/09/19 10/08/20 Rx oral suspension carbamide peroxide 6.5 % ear drops 4 drop OTIC (EAR) BID #15 ml 09/24/19 10/08/20 Rx ranitidine HCl 15 mg/mL oral syrup 150 mg PO DAILY #473 ml 12/22/19 10/08/20 Rx [G-Tube ] #1 ea 04/05/20 10/08/20 Rx G-tube kit 16F 3.0cm Marquez button #1 ea 04/13/20 10/08/20 Rx desmopressin 0.1 mg tablet 0.1 mg PO BID #180 tab 05/12/20 10/08/20 Rx augmentin 600 mg FEEDING TUBE BID #100 ml 07/16/20 10/08/20 Rx baclofen 20 mg tablet 20 mg PO TID #270 tab 11/08/20 02/11/21 Rx metoprolol tartrate 25 mg tablet 25 mg FEEDING TUBE BID #180 tab 11/08/20 02/11/21 Rx medroxyprogesterone 150 mg/mL 150 mg IM ONCE #1 ml 12/20/20 Rx intramuscular syringe Shiley Flex Cuffless Reuseable #1 ea 12/24/20 Rx Trach Tube 6.5mm albuterol sulfate 2.5 mg CONTINUOUS NEBULIZATION 01/20/21 Rx Q4HP PRN #25 each Allergies Allergy/AdvReac Type Severity Reaction Status Date / Time No Known Drug Allergies Allergy Verified 07/27/19 18:36 Review of Systems Review of Systems ROS: Yes unobtainable due to mental condition Exam Vital Signs (past 8 hours): - 02/11/21 08:00 Temperature 98.8 F Pulse Rate 120 H Respiratory Rate 26 H Blood Pressure 117/85 Pulse Oximetry 100 Oxygen Delivery Method Room Air Oxygen Flow Rate 0 HENMT Head: atraumatic Nose: external nose normal Eyes Sclera: sclerae normal Neck Neck: trachea midline (with trach in place) Chest Chest: other (congenital deformity) Resp Effort & Inspection: normal respiratory effort Cardio Rate: regular rate Rhythm: regular rhythm GI Palpation: soft and other Other: PEG tube in place. benign Neuro General: patient alert Psych Attitude: cooperative Objective Labs Result Diagrams: 02/10/21 16:10 02/10/21 16:10 Labs: Laboratory Results - last 24 hr 02/10/21 02/10/2102/10/21 16:10 16:10 16:10 WBC 8.4 RBC 4.65 Hgb 14.6 Hct 43.6 MCV 93.7 MCH 31.3 MCHC 33.4 RDW 12.7 Plt Count 193 Neut % (Auto) 64.6 Lymph % (Auto) 28.8 Crosby % (Auto) 4.9 Eos % (Auto) 1.4 L Baso % (Auto) 0.3 Neut # (Auto) 5400 Lymph # (Auto) 2400 Crosby # (Auto) 400 Eos # (Auto) 100 Baso # (Auto) 0 Sodium 139 Potassium 4.3 Chloride 107 Carbon Dioxide 22 BUN 15 Creatinine 0.33 L Estimated GFR > 60.0 BUN/Creatinine Ratio 45.5 H Glucose 103 H Lactate Calcium 9.5 Total Bilirubin 2.0 H AST 40 H ALT 33 Alkaline Phosphatase 265 H Total Protein 8.9 H Albumin 4.1 Globulin 4.8 H Albumin/Globulin Ratio 0.9 L Lipase Serum , Qual Negative Nasal Screen MRSA (PCR) SARS-CoV-2 (PCR) 02/10/21 02/10/21 02/10/21 16:10 16:47 19:11 WBC RBC Hgb Hct MCV MCH MCHC RDW Plt Count Neut % (Auto) Lymph % (Auto) Crosby % (Auto) Eos % (Auto) Baso % (Auto) Neut # (Auto) Lymph # (Auto) Crosby # (Auto) Eos # (Auto) Baso # (Auto) Sodium Potassium Chloride Carbon Dioxide BUN Creatinine Estimated GFR BUN/Creatinine Ratio Glucose Lactate 2.6 H 0.8 Calcium Total Bilirubin AST ALT Alkaline Phosphatase Total Protein Albumin Globulin Albumin/Globulin Ratio Lipase 32 Serum , Qual Nasal Screen MRSA (PCR) SARS-CoV-2 (PCR) 02/10/21 02/11/21 23:21 08:48 WBC RBC Hgb Hct MCV MCH MCHC RDW Plt Count Neut % (Auto) Lymph % (Auto) Crosby % (Auto) Eos % (Auto) Baso % (Auto) Neut # (Auto) Lymph # (Auto) Crosby # (Auto) Eos # (Auto) Baso # (Auto) Sodium Potassium Chloride Carbon Dioxide BUN Creatinine Estimated GFR BUN/Creatinine Ratio Glucose Lactate Calcium Total Bilirubin AST ALT Alkaline Phosphatase Total Protein Albumin Globulin Albumin/Globulin Ratio Lipase Serum , Qual Nasal Screen MRSA (PCR) Negative for mrsa SARS-CoV-2 (PCR) Negative Assessment & Plan Assessment & Plan narrative: Constipation resolved with medical management. No surgical intervention needed. COVID-19 COVID-19 status: Negative Time Spent With Patient Time with patient: less than 15 minutes
--- NOTE | 2021-02-11 12:29 | CM.IDA ---
Initial DCP Assessment Note: Patient is a 35 yo female, resident of [place]. Patient is wheelchair bound with profound CP, non verbal, w/trach and feeding tube...presents via EMS, 911 called by father to request ER visit d/t patient's distended tummy and 3 day h/o constipation According to H+P: On 01/20/21, she was seen by ZENA Ervin and her father who is her DPOA signed a [facility] POLST form indicating she is a DNR/DNI with termite treater tube feedings and that her care be focused on comfort measures. She is fed by G-tube 4 times a day and has fresh water boluses 6 times a day. DC Summary now completed which states: Following some enemas and Mag citrate through her G-tube she was able to have a bowel movement and appeared much more comfortable PCP: Dr Brewer and Ann Marie Martin Payer: KEVIN/[employer] Met w/patient and her DPOA/father, Bucky Melchor, introduced role. patient somewhat restless during the beginning of our visit and father explained every time someone new enters the room she does this but settles down quickly when staff leave. Had lengthy conversation w/ Dad, supported him as he discussed the many challenges he has faced, particularly since losing his years ago to Ovarian Cancer. Patient and he moved to [place] from [place] to be closer to patient's sister Janell, 55 yo. Patient has 3 siblings total that live across the [place]. Patient has 280 hrs of care giving through the [facility] program, [facility] WEBBER is Sienna Arellano# [phone]. Patient had multiple care givers helping until the COVID-19 Pandemic made in person contact more dangerous. Dad has been the only cg for over a year now and admits to this PROFESSIONAL CASTER he is ready to welcome care givers back in their home to assist patient. [facility] has provided agency numbers to contact and begin search for new care givers. Patient uses [facility] for medical appts. Patient requires around the clock care, her Dad changes all briefs throughout the day and night (x8-11), he takes care of all feeding, tube and trach maintenance, suctioning, BMs etc. Father admits this is exhausting and he gets approx. 4-5 hours of sleep nightly, however, when you love someone, it isn't a burden, it's an act of love. Father applied for nursing assist through [facility] but was not granted the request (?) Father denies needs from this PROFESSIONAL CASTER, other than [employer] transport, father very appreciative for the visit. Patient scheduled w/ EXTRUSION PROCESS OPERATOR Ann Marie Martin for a home visit February 17. This PROFESSIONAL CASTER given permission from father to connect w/ [facility] Montoya. Placed call and had to . Requested that NIKKIE Da Silva fax DC Summary Attn: Sienna Montoya. Then placed call to [facility] transport and p/u arranged for 1500, w/c transport via [facility], EDUAR Schulz made aware. Updated patient and her father KARLEY Haney
[2021-02-11] MEDS: INFLUENZA VACCINE 0.5 ML SYRINGE IM (12:35)
--- NOTE | 2021-02-11 14:00 | CM.DPNOTE ---
Faxed DC summary to [facility] Attn: Sienna Jan at [phone]. Fax confirmation received. Rekha James CM Asst.
--- NOTE | 2021-02-11 15:19 | CM.DPNOTE ---
DC Note This CRANBERRY FARM SUPERVISOR arranged [employer] w/c transport via [facility], scheduled to p/u patient at 1500; RN and patient's father were updated with this information. Later learned, upon [facility]'s arrival, that father dismissed this transport stating patient required BLS transport home. This CRANBERRY FARM SUPERVISOR entered room to discuss transport options. Father explained patient was brought to the hospital via ambulance and so common sense would tell us that she needs to return home via ambulance. Attempted to clarify baseline information ie baseline transport (?), father explained patient travels via her own wheelchair in [facility] that is fitted to her body and reclines to suit her unique needs. Patient cannot tolerate a regular wheelchair provided by [facility]. father agitated and argumentive Reviewed the potential financial consequence in using BLS transport and potential out of pocket cost if [facility] and/or [employer] does not cover 100%. father states he will not argue with this CRANBERRY FARM SUPERVISOR, that BLS will be covered 100% no matter what this CRANBERRY FARM SUPERVISOR explains Scheduled BLS transport for p/u at 1730 via [facility]. Completed medical necessity form and Dr Garza has signed. Updated RN and patient/family re: BLS package pick up time and father appears very upset with delay. Apologized for the miscommunication re: transportation needs. KARLEY Haney
[2021-02-12 08:52] LABS: Acinetobacter baumannii Not Detected (Not Detect); Candida albicans Not Detected (Not Detect); Candida glabrata Not Detected (Not Detect); Candida krusei Not Detected (Not Detect); Candida parapsilosis Not Detected (Not Detect); Candida tropicalis Not Detected (Not Detect); E. coli Not Detected (Not Detect); Enterobacter cloacae complex Not Detected (Not Detect); Enterobacteriaceae species Not Detected (Not Detect); Enterococcus species Not Detected (Not Detect); Haemophilus influenzae Not Detected (Not Detect); KPC (carbapenem-resist gene) Not Detected (Not Detect); Listeria monocytogenes Not Detected (Not Detect); Methicillin-resistant gene Not Detected (Not Detect); Neisseria meningitidis Not Detected (Not Detect); Proteus species Not Detected (Not Detect); Pseudomonas aeruginosa Not Detected (Not Detect); Serratia marcescens Not Detected (Not Detect); Staphylococcus species Not Detected (Not Detect); Streptococcus agalactiae (Gr B Not Detected (Not Detect); Streptococcus pneumonia Not Detected (Not Detect); Streptococcus pyogenes (Gr A) Not Detected (Not Detect); Streptococcus species Not Detected (Not Detect); Vancomycin-rest genes A/B Not Detected (Not Detect)
== END 2021-02-11 17:40 | disposition home or self-care (01) ==
LOC: ED 16:09 → AC 23:21 → ICU 02-11 00:32
PROVIDERS: Emergency Medicine; Internal Medicine; Admitting Provider Nurse Practitioner Family; Emergency Provider Emergency Medicine; Family Provider Family Medicine; PCP Nurse Practitioner; Referring Provider Emergency Medicine; Visit Provider Nurse Practitioner Family
DX: K59.09 Other constipation (principal); G80.9 Cerebral palsy, unspecified; Z93.0 Tracheostomy status; Z93.1 Gastrostomy status; D35.02 Benign neoplasm of left adrenal gland; M41.9 Scoliosis, unspecified; E23.2 Diabetes insipidus; I10 Essential (primary) hypertension; R62.59 Other lack of expected normal physiological development in childhood; Z20.822 Contact with and (suspected) exposure to COVID-19; Z23 Encounter for immunization
CPT/HCPCS: 36415; 71260; 74022; 74177; 80053; 83605; 83690; 84703; 85025; 87040; 87147; 87150; 87205; 87635; 87797; 90471; 90656; 96360; 96361; 99225; 99285; C9803; G0378; Q2038; Q9967

== ENCOUNTER 2021-04-03 11:56 | Emergency (ER) | payer MEDICARE, MEDICAID, SELFPAY ==
[2021-04-03] VITALS (21 sets, daily range): BP systolic 103–160; BP diastolic 67–96; PULSE 90–108; RESP 22–28; TEMP 36.4; O2SAT 89–96; BMI 52.0
--- NOTE | 2021-04-03 12:38 | DI.RAD.S_ITS ---
PROCEDURE: XR CHEST 1V INDICATIONS: Hemoptysis TECHNIQUE: One view of the chest was acquired. COMPARISON: [facility], CT, CT CHEST ABD PEL W CON, 02/10/2021, 17:05. [facility], CR, XR ACUTE ABDOMEN SERIES, 02/10/2021, 16:15. [facility], CT, CT CHEST W CON, 11/22/2020, 11:56. [facility], CR, XR CHEST 2V, 11/15/2020, 9:15. [facility], CR, XR CHEST 2V, 09/29/2020, 13:28. FINDINGS: Surgical changes and devices: Tracheostomy tube in normal position. Stable appearing extensive spine fusion procedure with bilateral Chau rods traversing from the upper thoracic spine inferiorly below the imaging margin. Lungs and pleura: Lungs are abnormal with prominently reduced inspiratory volume, and there is a masslike structure at the medial right upper lobe, near the apex, that has been previously identified but considered a chronic lung consolidation appearance. Certainty of benign lung consolidation is not established and the radiodensity appears to have enlarged. It is difficult to compare current plain film imaging with prior CT scanning.. No pleural effusions or pneumothorax. Mediastinum: Mediastinal contours appear normal. Heart size is normal. Bones and chest wall: No suspicious bony lesions. Overlying soft tissues appear unremarkable. Several of the images appear to raise concern for presence of subdiaphragmatic free air but this likely is a sequela overlapping colonic bowel loops and margins. IMPRESSION: Enlarging masslike structure medial right upper lobe, contrast-enhanced CT scanning is recommended. This has been thought previously to represent chronic retention of pulmonary secretions within the right upper lobe but the structure appears to have enlarged by plain film, and malignancy is increased in probability given the history of hemoptysis. The plain film imaging also raised concern for possible subdiaphragmatic free air. The likelihood of free air is considered low but CT scanning of the chest would include the area of current plain film concern at the upper abdomen and clarify this particular finding. Dictated by: Malik Hedrick M.D. on 04/03/2021 at 12:09 Approved by: Malik Hedrick M.D. on 04/03/2021 at 12:15
--- NOTE | 2021-04-03 12:50 | ED_ITS ---
HPI - URI/Sore Throat General Chief Complaint: Upper Respiratory Symptoms Stated Complaint: Blood from Trach Time Seen by Provider: 04/03/21 12:19 Source: EMS Mode of arrival: EMS Limitations: physical limitation History of Present Illness HPI Narrative: Patient is a 36-year-old female with history of cerebral palsy and trach presenting with her father the primary critical care educator is with blood in trach. He did notice that it was slightly dark and maybe got 100 cc out. It happened suddenly. He denies any fever he has had episodes of pneumonia this year. She previously was prescribed a scopolamine patch which he did not place her thinking that it made things worse. She does seem to be in some respiratory distress at this time. She does not have gross blood her trach he does seem to be serosanguineous and light pink. Previous CT in January showed right upper lobe bronchus chronically occluded. She has no fever and was doing well yesterday. Related Data Home Medications Medication Instructions Recorded Confirmed lactose-reduced food with fibr 1 dose FEEDING TUBE QID 05/29/18 10/08/20 [Jevity 1 Violeta] Nebulizer Mask: Adult 1 ea MISCELLANEOUS DIRECTED 06/03/18 10/08/20 [INNER CANNULA] 1 ea MISCELLANEOUS DIRECTED 06/03/18 10/08/20 [L Adult Briefs] 1 pac MISCELLANEOUS SEE 06/03/18 10/08/20 INSTRUCTIONS [SUCTION CATHETER ] 1 ea MISCELLANEOUS DIRECTED 06/03/18 10/08/20 [SUCTION TUBING] 1 ea MISCELLANEOUS DIRECTED 06/03/18 10/08/20 [sterile water] 1 ea MISCELLANEOUS DIRECTED 06/03/18 10/08/20 [thermal vents] 1 u SEE INSTRUCTIONS 06/03/18 10/08/20 [trach ties] 1 ea MISCELLANEOUS DIRECTED 06/03/18 10/08/20 simethicone [Gas Relief 20 mg PO QIDP PRN 06/03/18 10/08/20 (simethicone)] Previous Rx's Medication Instructions Recorded [Jevity 1 violeta] 4 can QDAY #0 08/22/16 [Button Kit] 1 kit QMONTH #1 kit 11/16/16 simethicone [Gas-X Extra Strength] 125 mg PO QID #120 tab 07/10/17 docusate sodium 50 mg/5 mL oral 50 mg PO DAILY #473 ml 11/20/18 liquid famotidine 40 mg/5 mL (8 mg/mL) 40 mg PO DAILY #150 ml 09/09/19 oral suspension carbamide peroxide 6.5 % ear drops 4 drop OTIC (EAR) BID #15 ml 09/24/19 ranitidine HCl 15 mg/mL oral syrup 150 mg PO DAILY #473 ml 12/22/19 [G-Tube ] #1 ea 04/05/20 G-tube kit 16F 3.0cm Marquez button #1 ea 04/13/20 desmopressin 0.1 mg tablet 0.1 mg PO BID #180 tab 05/12/20 augmentin 600 mg FEEDING TUBE BID #100 ml 07/16/20 baclofen 20 mg tablet 20 mg PO TID #270 tab 11/08/20 metoprolol tartrate 25 mg tablet 25 mg FEEDING TUBE BID #180 tab 11/08/20 medroxyprogesterone 150 mg/mL 150 mg IM ONCE #1 ml 12/20/20 intramuscular syringe Shiley Flex Cuffless Reuseable #1 ea 12/24/20 Trach Tube 6.5mm albuterol sulfate 2.5 mg CONTINUOUS NEBULIZATION 01/20/21 Q4HP PRN #25 each Allergies Allergy/AdvReac Type Severity Reaction Status Date / Time No Known Drug Allergies Allergy Verified 07/27/19 18:36 Review of Systems Review of Systems ROS Unobtainable: Unobtainable due to medical condition Patient History Medical History Aspiration pneumonia Cerebral palsy Developmental delay, mild Diabetes insipidus (~1982) Granulation tissue of site of tracheostomy History of anoxic brain injury Pneumonia Scoliosis (~1995) Tracheostomy granuloma Surgical History Anesthesia Arthritis of right hip (~1992) G tube feedings (~1996) History of release of tendon History of tracheostomy (~1996) Surgical procedure planned (~1992) Family History Father Age: 79 Non-Hodgkin lymphoma Diabetes mellitus Heart disease Hypertension High cholesterol Pacemaker Grandmother Heart disease Hypertension High cholesterol Stroke Cancer Mother Diabetes mellitus Ovarian cancer Grandfather Cancer Grandmother Diabetes mellitus Heart disease Hypertension High cholesterol Stroke Social History household members: family Smoking Status: Never smoker Smoking Status: Never smoker alcohol intake frequency: holidays/special occasions only Substance Use Type: does not use Exam Initial Vital Signs Initial Vital Signs: Vital Signs Pulse Rate 100 H 04/03/21 12:28 Pulse Oximetry 96 04/03/21 12:28 GENERAL: Alert cerebral palsy patient appears uncomfortable HEENT: Head atraumatic,EOMI, pupils reactive, face symmetric, trach in place, no gross blood skin intact around trace CARDIOVASCULAR: Regular rate and rhythm without murmurs, rubs or gallops. RESPIRATORY: Breath sounds equal bilaterally, no wheezes rales or rhonchi. ABDOMEN: Soft, nontender. Normoactive bowel sounds all 4 quadrants. No guarding or rebound. EXTREMITIES: Normal range of motion, no clubbing or edema. Neurovascularly intact NEUROLOGICAL: Moving all extremities SKIN: Warm, dry, no laceration, no petechiae, no rashes or lesions. Course Orders Ordered: ED Orders 04/03/21 12:30 Sputum Culture Stat 04/03/21 12:37 Consult to Respiratory Therapy Evaluate & Treat 04/03/21 12:38 XR chest 1V Stat 04/03/21 13:10 Sputum Culture Stat 04/03/21 13:18 Complete Blood Count AUTO DIFF Stat Comprehensive Metabolic Panel Stat Lactate (Lactic Acid) Stat NT-proBNP (BNP-Adult 18+) Stat Troponin & CK Cardiac Panel Stat 04/03/21 13:35 D Dimer Stat 04/03/21 15:05 CT chest w con Stat 04/03/21 18:43 COVID19 -Nasal swab/Pre-Proc Stat Vital Signs Vital signs: Vital Signs - 8 hr 04/03/21 12:28 04/03/21 12:30 04/03/21 12:31 Temperature 97.5 F L Pulse Rate 100 H 103 H 100 H Respiratory Rate 28 H Blood Pressure 139/89 160/96 H Pulse Oximetry 96 96 96 04/03/21 12:48 04/03/21 13:00 04/03/21 13:30 Temperature Pulse Rate 100 H 96 H Respiratory Rate 22 Blood Pressure 125/86 Pulse Oximetry 96 92 93 04/03/21 14:00 04/03/21 14:30 04/03/21 15:00 Temperature Pulse Rate 90 96 H 94 H Respiratory Rate Blood Pressure 119/71 121/73 122/70 Pulse Oximetry 94 95 93 04/03/21 15:30 04/03/21 15:43 04/03/21 16:02 Temperature Pulse Rate 98 H 90 97 H Respiratory Rate Blood Pressure 123/75 123/75 Pulse Oximetry 91 96 96 04/03/21 16:06 04/03/21 16:30 04/03/21 17:00 Temperature Pulse Rate 102 H 103 H 100 H Respiratory Rate Blood Pressure 131/80 109/76 129/83 Pulse Oximetry 93 95 96 04/03/21 17:30 04/03/21 18:00 Temperature Pulse Rate 106 H 106 H Respiratory Rate Blood Pressure 118/77 113/76 Pulse Oximetry 91 93 MDM - URI/Sore Throat Lab Data Attestation: I reviewed the patient's lab results. Result diagrams: 04/03/21 13:18 04/03/21 13:18 Labs: Lab Results 04/03/21 04/03/21 04/03/21 Range/Units 13:18 13:18 13:18 WBC 7.5 (4.5-11.0) X10^3/uL RBC 4.59 (4.0-5.2) X10^6/uL Hgb 14.2 (12.0-16.0) g/dL Hct 42.2 (36-46) % MCV 91.9 (80-100) fL MCH 30.9 (26-34) PG MCHC 33.6 (30-36) % RDW 12.6 (11.6-14.8) % Plt Count 163 (150-400) X10^3/uL Neut % (Auto) 72.0 (50-75) % Lymph % (Auto) 18.3 L (25-40) % [place] % (Auto) 6.1 (3-14) % Eos % (Auto) 3.3 (2-4) % Baso % (Auto) 0.3 (0-2) % Neut # (Auto) 5400 (8184-6614) /uL Lymph # (Auto) 1400 (9449-6515) /uL [place] # (Auto) 500 (0-900) /uL Eos # (Auto) 200 (0-450) /uL Baso # (Auto) 0 (0-100) /uL D-Dimer (<230) ng/mL Sodium (137-145) mmol/L Potassium (3.4-5.1) mmol/L Chloride (98-107) mmol/L Carbon Dioxide (22-32) mmol/L BUN (7-17) mg/dL Creatinine (0.52-1.04) mg/dL Estimated GFR (>60) mL/min BUN/Creatinine Ratio (6-22) Glucose (70-100) mg/dL Lactate 1.0 (0.7-2.1) mmol/L Calcium (8.4-10.2) mg/dL Total Bilirubin (0.2-1.3) mg/dL AST (14-36) IU/L ALT (<35) IU/L Alkaline Phosphatase (38-126) U/L Total Creatine Kinase 37 (30-135) U/L CK-MB (CK-2) TNP CK-MB (CK-2) Rel Index TNP Troponin I < 0.012 (0.01-0.034) ng/mL NT-Pro-B Natriuret Pep 56 (<125) pg/mL Total Protein (6.3-8.2) g/dL Albumin (3.5-5.0) g/dL Globulin (1.7-4.1) g/dL Albumin/Globulin Ratio (1.0-2.8) 04/03/21 04/03/21 Range/Units 13:18 13:35 WBC (4.5-11.0) X10^3/uL RBC (4.0-5.2) X10^6/uL Hgb (12.0-16.0) g/dL Hct (36-46) % MCV (80-100) fL MCH (26-34) PG MCHC (30-36) % RDW (11.6-14.8) % Plt Count (150-400) X10^3/uL Neut % (Auto) (50-75) % Lymph % (Auto) (25-40) % [place] % (Auto) (3-14) % Eos % (Auto) (2-4) % Baso % (Auto) (0-2) % Neut # (Auto) (4854-3199) /uL Lymph # (Auto) (8632-9134) /uL [place] # (Auto) (0-900) /uL Eos # (Auto) (0-450) /uL Baso # (Auto) (0-100) /uL D-Dimer < 200 (<230) ng/mL Sodium 132 L (137-145) mmol/L Potassium 4.9 (3.4-5.1) mmol/L Chloride 102 (98-107) mmol/L Carbon Dioxide 24 (22-32) mmol/L BUN 11 (7-17) mg/dL Creatinine 0.19 L (0.52-1.04) mg/dL Estimated GFR > 60.0 (>60) mL/min BUN/Creatinine Ratio 57.9 H (6-22) Glucose 94 (70-100) mg/dL Lactate (0.7-2.1) mmol/L Calcium 9.1 (8.4-10.2) mg/dL Total Bilirubin 1.4 H (0.2-1.3) mg/dL AST 57 H (14-36) IU/L ALT 49 H (<35) IU/L Alkaline Phosphatase 200 H (38-126) U/L Total Creatine Kinase (30-135) U/L CK-MB (CK-2) CK-MB (CK-2) Rel Index Troponin I (0.01-0.034) ng/mL NT-Pro-B Natriuret Pep (<125) pg/mL Total Protein 8.4 H (6.3-8.2) g/dL Albumin 4.0 (3.5-5.0) g/dL Globulin 4.4 H (1.7-4.1) g/dL Albumin/Globulin Ratio 0.9 L (1.0-2.8) Imaging Data CT scan - chest: Radiologist's Impression: PROCEDURE: CT CHEST W CON INDICATIONS: rul mass with hemoptysis TECHNIQUE: After the administration of intravenous contrast, 5 mm thick sections acquired from the pulmonary apices to the posterior costophrenic angles. 1 mm axial lung, 5 mm thick coronal and sagittal reformats and 7 mm axial MIP were acquired. For radiation dose reduction, the following was used: automated exposure control, adjustment of mA and/or kV according to patient size. COMPARISON: [facility], CT, CT CHEST W CON, 11/22/2020, 11:56. [facility], CT, CT CHEST ABD PEL W CON, 02/10/2021, 17:05. FINDINGS: Image quality: Excellent. Lungs and pleura: No acute air space opacities, but there is significant improve visualization of the area of suspected neoplasm at the medial right lung apex. Much of soft tissue prominence in area is comprised atelectatic lung with retention of pulmonary secretions and mucous plugging within airways producing vertically oriented columns of mucous retention. There is, however, a central mass that is malignant in appearance, best seen on series 8, image 16. This mass demonstrates direct invasion into the adjacent superior right mediastinal fat, and extending into the right pretrach eal and paratracheal soft tissues. Two areas of superior adenopathy associated with this mass are located slightly more superiorly centered on series 8, image 13 with the largest involved lymph node measuring up to 1.7 cm in long axis dimension and 1.2 cm transverse.. No pleural effusions or pneumothorax. Central and peripheral airways are patent and normal in caliber. Mediastinum: Heart size is normal. No pericardial effusion. No mediastinal or hilar adenopathy by size criteria. Thoracic aorta and central pulmonary arteries are normal in size. Esophagus is normal in caliber. No hiatal hernia. Bones and chest wall: No suspicious bony lesions. No vertebral body compression fractures. No axillary or supraclavicular adenopathy by size criteria. Thyroid gland is not well seen and may contain a right-sided nodule. Tracheostomy tube immediately adjacent reduces quality of visualization in this area as does metal artifact from the Chau rods chronically present.. Abdomen: Visualized upper abdominal solid organs appear normal. Upper abdominal bowel loops are normal in caliber. IMPRESSION: 1. Malignant-appearing mass at the medial aspect of a area of retention of pulmonary secretions and atelectasis. This mass directly invades the adjacent soft tissue s of the superior right mediastinum, and there is mild adenopathy at the upper border of this area of tumor infiltration. 2. Follow-up nuclear medicine PET-CT scanning likely is warranted in this c ircumstance to assist in staging, and to assist in identifying potential site for CT-guided biopsy. Currently no site is identified that would provide safe access for CT-guided biopsy. 3. Prior recent plain film imaging head raise concern for possible subdiaphragmatic free air. No free air is present as cause of that appearance. Dictated by: Malik Hedrick M.D. on 04/03/2021 at 16:08 Chest x-ray: Radiologist's Impression: PROCEDURE: XR CHEST 1V INDICATIONS: Hemoptysis TECHNIQUE: One view of the chest was acquired. COMPARISON: [facility], CT, CT CHEST ABD PEL W CON, 02/10/2021, 17:05. [facility], CR, XR ACUTE ABDOMEN SERIES, 02/10/2021, 16:15. [facility], CT, CT CHEST W CON, 11/22/2020, 11:56. [facility], CR, XR CHEST 2V, 11/15/2020, 9:15. [facility], CR, XR CHEST 2V, 09/29/2020, 13:28. FINDINGS: Surgical changes and devices: Tracheostomy tube in normal position. Stable appearing extensive spine fusion procedure with bilateral Chau rods traversing from the upper thoracic spine inferiorly below the imaging margin. Lungs and pleura: Lungs are abnormal with prominently reduced inspiratory volume, and there is a masslike structure at the medial right upper lobe, near the apex, that has been previously identified but considered a chronic lung consolidation appearance. Certainty of benign lung consolidation is not established and the radiodensity a ppears to have enlarged. It is difficult to compare current plain film imaging with prior CT scanning.. No pleural effusions or pneumothorax. Mediastinum: Mediastinal contours appear normal. Heart size is normal. Bones and chest wall: No suspicious bony lesions. Overlying soft tissues ap pear unremarkable. Several of the images appear to raise concern for presence of subdiaphragmatic free air but this likely is a sequela overlapping colonic bowel loops and margins. IMPRESSION: Enlarging masslike structure medial right upper lobe, contrast- enhanced CT scanning is recommended. This has been thought previously to represent chronic retention of pulmonary secretions within the right upper lobe but the structure appears to have enlarged by plain film, and malignancy is increased in probability given the history of hemoptysis. The plain film imaging also raised concern for possible subdiaphragmatic free air. The likelihood of free air is considered low but CT scanning of the chest would include the area of current plain film concern at the upper abdomen and clarify this p articular finding. Dictated by: Malik Hedrick M.D. on 04/03/2021 at 12:09 [facility] Narrative Medical decision making narrative: Patient has reports of hemoptysis she does have some mild pink frothy sputum. No gross hemoptysis she is hemodynamically stable. X-ray reports mass like structure and CT confirms suspicious mass structure and is near the right mediastinum. [address] Dr[address] Jang pulmonology at [facility] updated patient's symptoms and test results he does think that due to patient's report of 100 cc of lavon blood she should probably be observed overnight. Unfortunately [facility] has no beds, [facility]-no beds [place]-no beds [facility]-no beds [facility]-bed available Have spoken with the dad about going to [place] however at this time he would rather take her home and follow-up as an outpatient. I do think this is reasonable she has not had any gross hemoptysis and is hemodynamically stable I have instructed him on when to return to the emergency department and he understands that this needs further workup. Discharge Plan Departure Patient Disposition: Home Clinical Impression: Hemoptysis, Mass of right lung Instructions: DI for Hemoptysis Activity Restrictions/Additional Instructions: *You have been diagnosed with hemoptysis *What to do: Unfortunately the blood you notice today is likely from a lung mass. This need further investigation including biopsy. I did talk briefly to a digital forensics investigator at [facility] who recommended staying in the hospital overnight and watching her. However I do feels comfortable letting her go home with you. If symptoms were to worsen in you are still suctioning out gross bright red blood you need to return to emergency department immediately *Continue to take medications as directed *Follow up with your primary care provider in 2-3 days *Return to ER if you should have persistent bleeding, agitation, distress [or] any new, worsening or concerning symptoms Prescriptions: No Action [Jevity 1 violeta] 4 can QDAY Qty: 0 RF: 0 [Button Kit] 1 kit QMONTH Qty: 1 RF: 12 simethicone [Gas-X Extra Strength] 125 MG tablet,chewable 125 mg PO QID Qty: 120 RF: 2 famotidine 40 mg/5 mL (8 mg/mL) suspension 40 mg PO DAILY Qty: 150 RF: 11 ranitidine HCl 15 mg/mL syrup 150 mg PO DAILY Qty: 473 RF: 11 (DME) [G-Tube ] See Rx Instructions .Route .MEDSUPPLY Qty: 1 RF: 6 (DME) G-tube kit 16F 3.0cm Marquez button Qty: 1 RF: 11 desmopressin [DDAVP] 0.1 mg tablet 0.1 mg PO BID Qty: 180 RF: 3 baclofen 20 mg tablet 20 mg PO TID Qty: 270 RF: 3 metoprolol tartrate 25 mg tablet 25 mg feeding tube BID Qty: 180 RF: 3 medroxyprogesterone 150 mg/mL syringe 150 mg IM ONCE Qty: 1 RF: 3 (DME) Shiley Flex Cuffless Reuseable Trach Tube 6.5mm 0 .Route .MEDSUPPLY Qty: 1 RF: 11 albuterol sulfate 2.5 mg /3 mL (0.083 %) solution for nebulization 2.5 mg continuous nebulization Q4HP PRN (Reason: bronchospasm) Qty: 25 RF: 2 docusate sodium 50 mg/5 mL liquid 50 mg PO DAILY Qty: 473 RF: 1 carbamide peroxide [Debrox] 6.5 % drops 4 drop otic (ear) BID Qty: 15 RF: 0 augmentin liquid 600 mg feeding tube BID Qty: 100 RF: 0 lactose-reduced food with fibr [Jevity 1 Violeta] 0.04 gram-1.06 kcal/mL Liquid 1 dose Feeding Tube QID RF: 0 simethicone [Gas Relief (simethicone)] 40 MG/0.6 ML drops,suspension 20 mg PO QIDP PRN (Reason: Acid Reflux) RF: 0 Nebulizer Mask: Adult 1 ea miscellaneous DIRECTED RF: 0 [INNER CANNULA] 1 ea miscellaneous DIRECTED RF: 0 [L Adult Briefs] 1 pac miscellaneous SEE INSTRUCTIONS RF: 0 [SUCTION CATHETER ] 1 ea miscellaneous DIRECTED RF: 0 [SUCTION TUBING] 1 ea miscellaneous DIRECTED RF: 0 [sterile water] 1 ea miscellaneous DIRECTED RF: 0 [thermal vents] 1 u SEE INSTRUCTIONS RF: 0 [trach ties] 1 ea miscellaneous DIRECTED RF: 0 Referrals: Ann Marie Martin ARNP [Primary Care Provider] -
[2021-04-03 13:28] LABS: Add Manual Diff / Slide Review NO; Basophils Absolute Auto 0 /uL (0-100); Basophils Percent Auto 0.3 % (0-2); Eosinophils Absolute Auto 200 /uL (0-450); Eosinophils Percent Auto 3.3 % (2-4); Hematocrit 42.2 % (36-46); Hemoglobin 14.2 g/dL (12.0-16.0); Lymphocytes Absolute Auto 1400 /uL (1100-4500); Lymphocytes Percent Auto 18.3 % (25-40); Mean Corpuscular HGB Conc 33.6 % (30-36); Mean Corpuscular Hemoglobin 30.9 PG (26-34); Mean Corpuscular Volume 91.9 fL (80-100); Monocytes Absolute Auto 500 /uL (0-900); Monocytes Percent Auto 6.1 % (3-14); Neutrophils Absolute Auto 5400 /uL (1500-7000); Platelet Count 163 X10^3/uL (150-400); Red Blood Cell Count 4.59 X10^6/uL (4.0-5.2); Red Cell Distribution Width 12.6 % (11.6-14.8); White Blood Cell Count 7.5 X10^3/uL (4.5-11.0)
[2021-04-03 13:38] LABS: Creatine Kinase 37 U/L (30-135)
[2021-04-03 13:46] LABS: Alanine Aminotransferase 49 IU/L (<35); Albumin Globulin Ratio 0.9 (1.0-2.8); Alkaline Phosphatase 200 U/L (38-126); Aspartate Aminotransferase 57 IU/L (14-36); BUN Creatinine Ratio 57.9 (6-22); Bilirubin Total 1.4 mg/dL (0.2-1.3); Blood Urea Nitrogen 11 mg/dL (7-17); Calcium 9.1 mg/dL (8.4-10.2); Carbon Dioxide 24 mmol/L (22-32); Chloride 102 mmol/L (98-107); Estimated Glomerular Filt Rate > 60.0 mL/min (>60); Globulin 4.4 g/dL (1.7-4.1); Glucose 94 mg/dL (70-100); Potassium 4.9 mmol/L (3.4-5.1); Sodium 132 mmol/L (137-145); Total Protein 8.4 g/dL (6.3-8.2)
[2021-04-03 13:51] LABS: NT-proBNP (BNP-Adult 18+) 56 pg/mL (<125); Troponin I < 0.012 ng/mL (0.01-0.034)
[2021-04-03 14:06] LABS: HEMOLYSIS 140 (0-50)
--- NOTE | 2021-04-03 15:05 | DI.CT.S_ITS ---
PROCEDURE: CT CHEST W CON INDICATIONS: rul mass with hemoptysis TECHNIQUE: After the administration of intravenous contrast, 5 mm thick sections acquired from the pulmonary apices to the posterior costophrenic angles. 1 mm axial lung, 5 mm thick coronal and sagittal reformats and 7 mm axial MIP were acquired. For radiation dose reduction, the following was used: automated exposure control, adjustment of mA and/or kV according to patient size. COMPARISON: [facility], CT, CT CHEST W CON, 11/22/2020, 11:56. [facility], CT, CT CHEST ABD PEL W CON, 02/10/2021, 17:05. FINDINGS: Image quality: Excellent. Lungs and pleura: No acute air space opacities, but there is significant improve visualization of the area of suspected neoplasm at the medial right lung apex. Much of soft tissue prominence in area is comprised atelectatic lung with retention of pulmonary secretions and mucous plugging within airways producing vertically oriented columns of mucous retention. There is, however, a central mass that is malignant in appearance, best seen on series 8, image 16. This mass demonstrates direct invasion into the adjacent superior right mediastinal fat, and extending into the right pretracheal and paratracheal soft tissues. Two areas of superior adenopathy associated with this mass are located slightly more superiorly centered on series 8, image 13 with the largest involved lymph node measuring up to 1.7 cm in long axis dimension and 1.2 cm transverse.. No pleural effusions or pneumothorax. Central and peripheral airways are patent and normal in caliber. Mediastinum: Heart size is normal. No pericardial effusion. No mediastinal or hilar adenopathy by size criteria. Thoracic aorta and central pulmonary arteries are normal in size. Esophagus is normal in caliber. No hiatal hernia. Bones and chest wall: No suspicious bony lesions. No vertebral body compression fractures. No axillary or supraclavicular adenopathy by size criteria. Thyroid gland is not well seen and may contain a right-sided nodule. Tracheostomy tube immediately adjacent reduces quality of visualization in this area as does metal artifact from the Chau rods chronically present.. Abdomen: Visualized upper abdominal solid organs appear normal. Upper abdominal bowel loops are normal in caliber. IMPRESSION: 1. Malignant-appearing mass at the medial aspect of a area of retention of pulmonary secretions and atelectasis. This mass directly invades the adjacent soft tissues of the superior right mediastinum, and there is mild adenopathy at the upper border of this area of tumor infiltration. 2. Follow-up nuclear medicine PET-CT scanning likely is warranted in this circumstance to assist in staging, and to assist in identifying potential site for CT-guided biopsy. Currently no site is identified that would provide safe access for CT-guided biopsy. 3. Prior recent plain film imaging head raise concern for possible subdiaphragmatic free air. No free air is present as cause of that appearance. Dictated by: Malik Hedrick M.D. on 04/03/2021 at 16:08 Approved by: Malik Hedrick M.D. on 04/03/2021 at 16:20
[2021-04-03 15:38] LABS: D Dimer < 200 ng/mL (<230)
--- NOTE | 2021-04-03 20:23 | PC.NURSE ---
Patient is being discharged home and denied transfer to [facility]
== END 2021-04-03 20:26 | disposition home or self-care (01) ==
PROVIDERS: Emergency Provider Emergency Medicine; Family Provider Family Medicine; PCP Nurse Practitioner; Referring Provider Emergency Medicine
DX: R04.2 Hemoptysis (principal); R91.8 Other nonspecific abnormal finding of lung field
CPT/HCPCS: 36415; 71045; 71260; 80053; 82550; 83605; 83880; 84484; 85025; 85379; 87070; 87077; 87186; 87205; 94799; 99283; 99284; Q9967

== ENCOUNTER → 2021-08-05 21:59 | Outpatient (ROUT) | payer OTHER, MEDICARE, MEDICAID, SELFPAY ==
[2021-08-05 23:15] LABS: COVID-19 CEPHEID PCR (VTM/NP) Negative (Negative)
== END ==
PROVIDERS: Family Provider Family Medicine; PCP Nurse Practitioner; Visit Provider Family Medicine
DX: Z20.822 Contact with and (suspected) exposure to COVID-19 (principal)
CPT/HCPCS: U0003